=== PATIENT | female | born 1955 | race Caucasian/White ===

== ENCOUNTER 2024-05-31 10:25 | Outpatient (AMB) | payer BC, SELFPAY ==
--- NOTE | 2024-05-31 10:19 | MHC.PC.OV ---
Vital Signs 05/31/24 10:36 Height 5 ft 7.91 in Weight 197 lb 2 oz BMI 30.0 BP 134/70 Blood Pressure Location Rt brachial Position Sitting Respiration 14 Pulse 88 Pulse Source Pulse Oximeter Temp 98 F Temp Source Oral Pulse Oximetry (%) 97 Oxygen Delivery Method Room Air Intake Visit Reasons: Establish care Intake Note: New patient visit Manager Of Manufacturing Required: No Allergies doxycycline Allergy (Unknown, Verified 05/31/24 10:27) Nausea Tobacco use date assessed: 05/31/24 Fall risk assessment: No Falls in past year Last assessed Fall Risk: 05/31/24 Dental Screening Dental Screen Date: 05/31/24 Did you have a dental visit in the last 12 months?: Yes Did you have a dental problem in the last 6 months where you did not have access to dental care?: No Was dental information given to patient?: Patient has dentist HPI HPI Comments History of Present Illness Details This is a 69 year old female with a pmhx of HTN, HLD, tachycardia, multiple thyroid nodules, left breast cancer and osteopenia presenting to transfer from my panel at [facility]. HTN, palpitations, mild AR, mild pulmonary HTN-Seen by Dr. Jason. Taking Losartan and Amlodipine. Patient previously on Carvedilol and reported increased BP and head pressure with it. Reported long history of PND and rhinitis on Lisinopril. She has home readings with her: 04/08/24 126/76 04/21/24 127/73 05/03/24 126/75 05/23/24 131/71 05/30/24 124/77 We have discussed ankle/pedal edema with Amlodipine. She wants to decrease the dose. She stopped drinking decaf coffee. Palpitations and loose stools resolved. 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 Taking multivitamin with 1000 of vitamin D3 for osteopenia. Needs order for bone density sent. Diagnosed with left breast cancer age 45. Recurrence 15 years later. S/p double mastectomy (found precancerouscells in right breast post op). Goes for mammogram next week. Followed by Dr. Baptiste [place]. Colonoscopy at [facility] 05/26/17 was wnl and advised to return in [address] Fuchs for pulm HTN and lung nodule. ROS: Constitutional: No unexplained weight loss, fever, chills, fatigue or night sweats. Respiratory: No shortness of breath, cough or sputum production. Cardiovascular: No chest pain Neurologic: No headache, dizziness, syncope Physical exam: Constitutional: Alert, in no distress. Head: Normocephalic. Neck: Supple, Full range of motion. No lymphadenopathy. Respiratory: Clear to auscultation. Cardiovascular: S1 S2 regular. II/ systolic murmur. Gastrointestinal: Abdomen soft, non-tender, non-distended. Normal bowel sounds. No palpable masses. Extremities: Warm and well perfused. Trace bilateral ankle edema. Psychiatric: Normal mood and affect [facility] Medical History (Updated 05/31/24 @ 13:49 by STACI Ibarra) History of left breast cancer Tachycardia Pure hypercholesterolemia Sigmoid diverticulosis Osteopenia Ophthalmic migraine Multiple thyroid nodules Mild pulmonary hypertension Mild aortic regurgitation Hyperlipidemia History of diverticulosis Hemorrhoids, internal H/O herpes zoster Diarrhea Benign essential hypertension Acute sinusitis Surgical History (Updated 05/31/24 @ 13:49 by STACI Ibarra) Hx of breast surgery H/O bilateral oophorectomy Family History (Updated 05/31/24 @ 13:50 by STACI Ibarra) Mother Breast cancer Sister Breast cancer Social History Housing: House Patient Tobacco Use Status: Never used Tobacco e-Cigarette/Vaping Use: Never Used Second Hand Smoke Exposure: No service: No Current occupational status: retired Cognitive needs: No Hearing needs: No Vision needs: Yes (glasses) Questionnaire AUDIT C Alcohol Use Questionnaire (AUDIT-C) 1. How often do you have a drink containing alcohol?: 4 or more times a week 2. How many drinks containing alcohol do you have on a typical day when you are drinking?: 1 or 2 3. How often do you have six or more drinks on one occasion?: Never Total Score: 4 Physical exam (Primary Care) Vital Signs: Last Vital Signs Temp 98 F 05/31/24 10:36 Pulse 88 05/31/24 10:36 Resp 14 05/31/24 10:36 BP 134/70 05/31/24 10:36 Pulse Ox 97 05/31/24 10:36 Oxygen Delivery Method Room Air 05/31/24 10:36 BMI result Body Mass Index 30.0 Tobacco/Smoking Status: Tobacco use Status Tobacco use date assessed 05/31/24 05/31/24 10:31 Patient Tobacco Use Status Never used Tobacco 05/31/24 10:31 e-Cigarette/Vaping Use Never Used 05/31/24 10:31 Assessment and Plan Assessment & Plan (1) Benign essential hypertension: Code(s): I10 - Essential (primary) hypertension Plan: Controlled per home readings. OK to decrease Amlodipine to 2.5 mg. Continue Losartan 50 mg. If BP is over 130/80 we will increase Losartan. She will send readings in few weeks. (2) Pure hypercholesterolemia: Code(s): E78.00 - Pure hypercholesterolemia, unspecified Plan: Reviewed lifestyle mods. Continue statin. (3) History of left breast cancer: Code(s): Z85.3 - Personal history of malignant neoplasm of breast Plan: Continue routine follow up with Dr. Baptiste's office. Mammogram next week. Plan Follow up in 6 months for physical. Orders: Orders XR DEXA axial skeleton Today N95.1 - Menopausal and female climacteric states Lipid Panel Today E78.00 - Pure hypercholesterolemia, unspecified, I10 - Essential (primary) hypertension, M85.80 - Other specified disorders of bone density and structure, unspecified site, R00.0 - Tachycardia, unspecified Comprehensive Met. Panel Today E78.00 - Pure hypercholesterolemia, unspecified, I10 - Essential (primary) hypertension, M85.80 - Other specified disorders of bone density and structure, unspecified site, R00.0 - Tachycardia, unspecified Complete Blood Count no Diff Today E78.00 - Pure hypercholesterolemia, unspecified, I10 - Essential (primary) hypertension, M85.80 - Other specified disorders of bone density and structure, unspecified site, R00.0 - Tachycardia, unspecified Vitamin D 1,25 dihydroxy Today E78.00 - Pure hypercholesterolemia, unspecified, I10 - Essential (primary) hypertension, M85.80 - Other specified disorders of bone density and structure, unspecified site, R00.0 - Tachycardia, unspecified Medications: New loperamide (Anti-Diarrheal (loperamide)) administer after each loose stool until symptoms controlled; do not exceed 8 mg per 24 hrs 2 mg PO Q6H PRN 30 tabs 1RF loose stool amlodipine 2.5 mg PO DAILY 30 tabs 0RF Coding Level of Care Code Est Pt Level 4 (30433) Complex EM visit Add On G2211 Diagnoses Benign essential hypertension I10 Pure hypercholesterolemia E78.00 History of left breast cancer Z85.3
[2024-05-31 10:36] VITALS: BP 134/70; PULSE 88; RESP 14; TEMP 36.6; O2SAT 97
== END 2024-05-31 11:23 | disposition home or self-care (01) ==
PROVIDERS: PCP Physician Assistant Medical; Visit Provider Physician Assistant Medical
DX: I10 Essential (primary) hypertension (principal); E78.00 Pure hypercholesterolemia, unspecified; Z85.3 Personal history of malignant neoplasm of breast
CPT/HCPCS: 99214

== ENCOUNTER 2024-12-06 07:36 | Outpatient (REF) | payer BC, SELFPAY ==
--- OUTSIDE RECORDS SUMMARY | 2024-12-06 07:38 | XMS_ITS | Data Portability ---
Author Organization [place] - [facility], [facility] Address [id number] [place] [address] Care Team Providers Care Tennis Court Attendant Name Role Phone STANLEY VINES Primary Care Provider KM LAGUNA Primary Care Provider Assessment Encounter Date Assessment Date Assessment LastModified by Organization Details LastModified Time 04/13/2016 04/13/2016 GYNECOLOGIC EXAMINATION - S/P BSO?? . Diet, exercise discussed.?? Advise to use?sunscreen.? Vitamin??D supplementation discussed. 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 PERSONAL HX OF BREAST CANCER - S/P BILATERAL MASTECTOMY WITH RIGHT NIPPLE REMAINED,?? EXPANDERS IN PLACE ejacunski Not available 04/13/2016 22:04:32 05/31/2017 05/31/2017 GYNECOLOGIC EXAMINATION - S/P BSO . Diet, exercise discussed. Advise to use sunscreen. 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 PERSONAL HX OF BREAST CANCER - S/P BILATERAL MASTECTOMY WITH RIGHT NIPPLE ? REMAINED, s/p reconstruction. ? Osteopenia - check BMD ejacunski Not available 06/01/2017 11:53:06 Plan of Treatment Reminders Order Date Submit Date Provider Last Modified By Organization Details Last Modified Time Details Appointments None recorded. Lab urinalysi s, dipstick 2015 016 ejacunski In-Office Order, Internal Use Only DO Not Attach Compendium DO Not Attach Compendium, Do Not Delete/merge, [id number] 6 22:04:31 pap, IG + reflex HPV - NORMAL EXAM [address] [facility], [address] [place], [address] 6 13:46:00 urinalysi s, dipstick 2016 017 ejacunski In-Office Order, Internal Use Only DO Not Attach Compendium DO Not Attach Compendium, Do Not Delete/merge, [id number] 7 11:53:07 pap, IG + HPV - normal exam [address] [facility], [address] [place], [address] 7 14:32:47 pap, IG + reflex HPV - normal exam [address] [facility], [address] [place] [address], [id number] 0 08:20:13 Referral None recorded. Procedures None recorded. Surgeries None recorded. Imaging bone density 2016 017 HERMELINDO Not available 7 08:29:11 Medication Orders None recorded. Patient TargetsNo targets recorded. Patient Instructions Encounter Date Encounter Id Patient Instructions Last Modified By Organization Details Last Modified Time 04/13/2016 [id number] GYNECOLOGIC EXAMINATION - S/P BSO?? . Diet, exercise discussed.?? Advise to use?sunscreen.? Vitamin??D supplementation discussed. 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 PERSONAL HX OF BREAST CANCER - S/P BILATERAL MASTECTOMY WITH RIGHT NIPPLE REMAINED,?? EXPANDERS IN PLACE ejacunski Not available 04/13/2016 22:04:32 GYNECOLOGIC EXAMINATION - S/P BSO?? . Diet, exercise discussed.?? Advise to use?sunscreen.? Vitamin??D supplementation discussed. 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 PERSONAL HX OF BREAST CANCER - S/P BILATERAL MASTECTOMY WITH RIGHT NIPPLE REMAINED,?? EXPANDERS IN PLACE ejacunski Not available 04/13/2016 22:04:32 05/31/2017 [id number] GYNECOLOGIC EXAMINATION - S/P BSO . Diet, exercise discussed. Advise to use sunscreen. 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 PERSONAL HX OF BREAST CANCER - S/P BILATERAL MASTECTOMY WITH RIGHT NIPPLE ? REMAINED, s/p reconstruction. ejacunski Not available 06/01/2017 11:52:30 GYNECOLOGIC EXAMINATION - S/P BSO . Diet, exercise discussed. Advise to use sunscreen. 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 PERSONAL HX OF BREAST CANCER - S/P BILATERAL MASTECTOMY WITH RIGHT NIPPLE ? REMAINED, s/p reconstruction. ejacunski Not available 06/01/2017 11:52:34 06/13/2018 [id number] tips to help you stay healthy ejacunski Not available 06/13/2018 22:09:55 Return to the office for routine exam and as needed. ejacunski Not available 06/13/2018 22:08:06 GYNECOLOGIC EXAMINATION - S/P BSO . Diet, exercise discussed. Advise to use sunscreen. Pap smear guidelines discussed. Pap not done. PERSONAL. HISTORY OF BREAST CANCER - S/P BILATERAL MASTECTOMY WITH RIGHT NIPPLE REMAINED, s/p reconstruction. 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 ejacunski Not available 08/22/2020 12:34:32 Patient presents for a well woman exam. She has been counseled regarding Pap smear screening as per guidelines of every three years for cytology review with high risk HPV testing. We spoke about the recommendation of dietary calcium and Vitamin D supplement. ejacunski Not available 08/19/2020 15:33:15 Reason for Referral None Reported. Results Created Date Observation Date Name Description Value Unit Range Abnormal Flag Note LastModifiedBy Organization Detail LastModifiedTime 05/31/20 17 05/31/2017 urina lysis , dipst ick Protein Negati ve Not Available In-Office Order Internal Use Only DO Not Attach Compendium DO Not Attach Compendium, Do Not Delete/merge, [id number] 05/31/2017 15:03:45 05/31/20 17 05/31/2017 urina lysis , dipst ick Glucose Negati ve Not Available In-Office Order Internal Use Only DO Not Attach Compendium DO Not Attach Compendium, Do Not Delete/merge, [id number] 05/31/2017 15:03:45 04/13/20 16 04/13/2016 urina lysis , dipst ick Protein Negati ve Not Available In-Office Order Internal Use Only DO Not Attach Compendium DO Not Attach Compendium, Do Not Delete/merge, [id number] 04/13/2016 11:19:33 04/13/20 16 04/13/2016 urina lysis , dipst ick Glucose Negati ve Not Available In-Office Order Internal Use Only DO Not Attach Compendium DO Not Attach Compendium, Do Not Delete/merge, [id number] 04/13/2016 11:19:33 04/13/20 16 04/14/2016 pap, IG + refle x HPV report GYNEC OLOGI KATHERIN CYTOL OGY REPOR T THINP REP PAP TEST WITH HPV REFLE X SPECI MEN ADEQU ACY: SATIS FACTO RY FOR EVALU ATION ; ENDOC ERVIC AL/TR ANSFO RMATI ON ZONE COMPO NENT PRESE NT. INTER PRETA TION: NEGAT ESTRELLA FOR INTRA EPITH ELIAL LESIO N OR MALSENDY I[place] . Elect farzana mello Sravani d Out By: SELENA TURK ON, [place]( CP) CLINI KATHERIN INFOR MATIO N: LMP: 2002 Z12.4 Speci men sourc e: CERVI X/END OCERV IX Abnor mal Pap Date: NI Addit ional Clini katherin Info/ Comme nts: 1 Autom ated presc reeni ng of all liqui d based speci mens is perfo rmed by the ThinP rep Imagi ng Systjuaquin mfelix s other [place]. The Pap test is a scree radha test with an inher ent false negat estrella rate. [facility]i [facility] , [address] [place] [address] CLIA [id number] CL-PO [id number]. Not Available [facility] [address] [place], [address] 04/14/2016 13:46:00 05/31/20 17 06/01/2017 pap, IG + HPV report GYNEC OLOGI KATHERIN CYTOL OGY REPOR T A. THINP REP PAP (IMAG ER) WITH HPV SCREE N AND REFLE X TO HPV 16,18 /45: SPECI MEN ADEQU ACY: SATIS FACTO RY FOR EVALU ATION . INTER PRETA TION: NEGAT ESTRELLA FOR INTRA EPITH ELIAL LESIO N OR MALSENDY CAMPBELLCY . 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 The Pap test is a scree radha test with an inher ent false negat estrella rate. [facility]i ng [facility] , [address] [place] [address] CLIA [id number] CL-PO [id number]. Not Available [facility] [address] [place], [place], [facility] 06/01/2017 14:32:47 05/31/20 17 06/01/2017 pap, IG + HPV HPV result Negati ve negati ve APTIM A HPV assay detec ts 14 high risk HPV types (HPV 16,18 ,31,3 3,35, 39,45 , 51,52 ,56,5 8,59, 66,68 ). The assay is FDA appro nitza for testi ng ThinP rep liqui d Pap vials but not FDA appro nitza for detec ting HPV in SureP ath liqui d Pap speci mens. In-ho use valid ation has shown the assay can detec t all HPV types from this sourc e. Not Available [facility] [address] [place] [address], [id number] 06/01/2017 14:32:47 10/06/01 2008/19/2020 pap, IG + refle x HPV report Report Final Gynec ologi katherin Cytol ogy Repor t ----- ----- ----- ----- ----- ----- ----- ----- ----- ----- ----- ----- ThinP rep Pap Test with HPV Refle x SPECI MEN ADEQU ACY: SATIS FACTO RY FOR EVALU ATION ; ENDOC ERVIC AL/TR ANSFO RMATI ON ZONE COMPO NENT PRESE NT. INTER PRETA TION: NEGAT ESTRELLA FOR INTRA EPITH ELIAL HEDY Anderson OR TIESHA [place] . Atrop hy Elect farzana Lassiter d: Carolina Johnson, [place] (ASCP ) ----- ----- ----- ----- ----- ----- ----- ----- ----- ----- ----- ----- CLINI KATHERIN INFOR JOCELYNE N: LMP: NG Speci men Sourc e: Cervi x, Endoc ervix CPT Codes : 73184 ICD Codes : Z12.4 Not Available [facility] [address] [place], [address] 08/24/2020 08:20:13 06/06/20 17 06/12/2012 bone densi ty No observ ation record ed. mkulas Not Available 2016 09:41:50 09/18/20 17 09/15/2017 DEXA, axial skele ton EXAMIN ATION: BONE DENSIT OMETRY CLINIC AL INDICA TION: Encoun ter for screen ing for osteop orosis . COMPAR DEVIN: Previo us BD dated 2011 and baseli ne BD dated 2004. TECHNI QUE: Dual-e nergy x-ray absorp tiomet ry was perfor med of the lumbar spine and left hip. The images are of good techni katherin qualit y. Summar y result s are attach ed. FINDIN GS: AP SPINE L1-L4: Curren t: BMD 1.011 g/cm2, Z-scor e 0.0, T-scor e -1.5, osteop enia, 3.4% increa se from previo us, 3.2% decrea se from baseli ne (<5% change is not signif icant) . Prior: BMD 0.978 g/cm2. Baseli ne: BMD 1.044 g/cm2. LEFT FEMUR, NECK: Curren t: BMD 0.934 g/cm2, Z-scor e 0.7, T-scor e -0.7, normal . Prior: BMD 0.880 g/cm2. Baseli ne: BMD 0.990 g/cm2. LEFT FEMUR, TOTAL: Curren t: BMD 0.934 g/cm2, Z-scor e 0.6, T-scor e -0.6, normal , 1.9% increa se from previo us, 5.7% decrea se from baseli ne (<5% change is not signif icant) . Prior: BMD 0.917 g/cm2. Baseli ne: BMD 0.990 g/cm2. IDENTI FIED RISK FACTOR S: Bilate ral oophor ectomy , menopa use. HISTOR Y OF FRACTU RE: None listed . MEDICA TIONS: None listed . IMPRES KONSTANTIN: 1. DIAGNO SIS: Osteop enia based on the lowest T-scor e value of -1.5 in the lumbar spine applyi ng World Health Organi zation criter ia. 2. 10-YEA R FRACTU RE RISK PREDIC TION, FRAX: Major osteop orotic fractu re (clini katherin spine, forear m, hip or should er) 7.4%. Hip fractu re 0.4%. RECOMM ENDATI ONS: 1. Treatm ent Recomm endati ons: NOF guidel david recomm end consid eratio n for treatm ent in postme nopaus al women and men age 50 and older presen juancho with the follow ing: -A hip or verteb ral (clini katherin or morpho metric ) fractu re. -T-sco re less than or equal to -2.5 at the femora l neck or spine after approp riate evalua tion to exclud e second solomon causes . -Low bone mass at the hip or spine and a 10-yea r fractu re probab ility by FRAX of greate r than or equal to 3% for hip fractu re or greate r than or equal to 20% for major osteop orotic fractu re based on the [place] adapte d WHO algori thm. 2. Other Recomm endati ons: All treatm ent decisi ons requir e clinic al judgme nt and consid eratio n of indivi dual patien t factor s, includ ing patien t prefer ences, comorb iditie s, previo us drug use, risk factor s not captur ed in the FRAX model (e.g. frailt y, falls, vitami n D defici ency, increa sed bone turnov er, interv al signif icant declin e in bone densit y) and possib le under or overes timati on of fractu re risk by FRAX. 3. Future Scan Recomm endati on: People with diagno sed cases of osteop orosis or at high risk for fractu re should have regula r bone minera l densit y tests. For patien ts eligib le for Medica re, routin e testin g is allowe d once every 2 years. The testin g freque ncy can be increa sed to one year for patien ts who have rapidl y progre ssing diseas e, those who are receiv ing or discon tinuin g medica l therap y to restor e bone mass, or have additi onal risk factor s. Thank you for referr ing your patien t to us, Eunice Garcia MD (Elect arabella torres Signed - 2016 08:22) Copy: STANLEY APPLE ON DO RAMIREZ EMI Reilly [facility] [facility] [address] [place] [address] [place] [address] [phone] [email or web address] [facility] [place] [address], [place], [address], 09/19/2017 10:13:05 09/18/20 17 09/15/2017 bone densi ty No observ ation record ed. [email or web address] [facility] [place] [address], [place], [address], 09/19/2017 10:13:05 10/18/20 21 10/15/2021 DEXA, axial skele ton EXAMIN ATION: BONE DENSIT OMETRY CLINIC AL INDICA TION: Osteop enia. COMPAR DEVIN: Previo us BD dated 2016 and baseli ne BD dated 2004. TECHNI QUE: Using a [employer] e DXA system (softw are versio n: 14.10) manufa ctured by [employer] s [employer], dual-e nergy x-ray absorp tiomet ry was perfor med of the lumbar spine and left hip. The images are of good techni katherin qualit y. Summar y result s are attach ed. FINDIN GS: AP SPINE L1-L4: Curren t: BMD 0.992 g/cm2, Z-scor e 0.0, T-scor e -1.6, osteop enia, 1.9% decrea se from previo us, 5.0% decrea se from baseli ne (<5% change is not signif icant) . Prior: BMD 1.011 g/cm2. Baseli ne: BMD 1.044 g/cm2. LEFT FEMUR, NECK: Curren t: BMD 0.900 g/cm2, Z-scor e 0.6, T-scor e -1.0, normal . Prior: BMD 0.934 g/cm2. Baseli ne: BMD 0.990 g/cm2. LEFT FEMUR, TOTAL: Curren t: BMD 0.876 g/cm2, Z-scor e 0.3, T-scor e -1.0, normal , 6.2% decrea se from previo us, 11.5% decrea se from baseli ne (<5% change is not signif icant) . Prior: BMD 0.934 g/cm2. Baseli ne: BMD 0.990 g/cm2. IDENTI FIED RISK FACTOR S: Menopa use, bilate ral oophor ectomy . HISTOR Y OF FRACTU RE: None listed . MEDICA TIONS: Vitami n D. IMPRES KONSTANTIN: 1. DIAGNO SIS: Osteop enia based on the lowest T-scor e value of -1.6 in the lumbar spine applyi ng World Health Organi zation criter ia. 2. 10-YEA R FRACTU RE RISK PREDIC TION, FRAX: Major osteop orotic fractu re (clini katherin spine, forear m, hip or should er) 8.6%. Hip fractu re 0.8%. 3. Treatm ent Recomm endati ons: NOF guidel david recomm end consid eratio n for treatm ent in postme nopaus al women and men age 50 and older presmannie dawkins with the follow ing: -A hip or verteb ral (clini katherin or morpho metric ) fractu re. -T-sco re less than or equal to -2.5 at the femora l neck or spine after approp riate evalua tion to exclud e second solomon causes . -Low bone mass at the hip or spine and a 10-yea r fractu re probab ility by FRAX of greate r than or equal to 3% for hip fractu re or greate r than or equal to 20% for major osteop orotic fractu re based on the [place] adapte d WHO algori thm. 4. Other Recomm endati ons: All treatm ent decisi ons requir e clinic al judgme nt and consid eratio n of indivi dual patien t factor s, includ ing patien t prefer ences, comorb iditie s, previo us drug use, risk factor s not captur ed in the FRAX model (e.g. frailt y, falls, vitami n D defici ency, increa sed bone turnov er, interv al signif icant declin e in bone densit y) and possib le under or overes timati on of fractu re risk by FRAX. Additi onal medica l evalua tion for second solomon cause of low bone minera l densit y may be approp riate. FUTURE SCAN RECOMM ENDATI ON: People with diagno sed cases of osteop orosis or at high risk for fractu re should have regula r bone minera l densit y tests. For patien ts eligib le for Medica re, routin e testin g is allowe d once every 2 years. The testin g freque ncy can be increa sed to one year for patien ts who have rapidl y progre ssing diseas e, those who are receiv ing or discon tinuin g medica l therap y to restor e bone mass, or have additi onal risk factor s. Thank you for referr ing your patien t to us, Stanley olson MD [id number] (Elect arabella torres Signed - 2020 08:40) Copy: FITZ RUSSELL [facility] [address] [place] [address] [phone] jennie [facility] ([facility]) [address], [place], [address], 10/25/2021 11:31:28 Result Notes None recorded. Problems Name Problem SNOMED Code Status Onset Date Resolution Date Notes Provider Name and Address Organization Details Recorded Time Malignant tumor of breast 331728221 Active S/P BILATERAL MASTECTOMY , RIGHT NIPPLE REMAINED - DR.KING FITZ MADERA MD 175 [facility], [address] [place] [address], [phone], [place] [facility] 6 22:06:46 Osteopenia [id number] Active FITZ MADERA MD 175 [facility], [address] [place] [address], [phone], [place] [facility] 6 22:06:46 Notes:HX OF BSO Problem Notes None recorded. Procedures Surgical History Date Name Laterality Status Provider Name and Address Organization Details Recorded Time 05/31/20 17 [id number] completed FITZ MADERA MD 175 [facility], [address] [place] [address], [phone], [facility] 06/01/2017 11:49:45 05/31/20 17 [id number] completed FITZ MADERA MD 175 [facility], [address] [place] [address], [phone], [facility] 06/01/2017 11:50:02 05/31/20 17 [id number] completed FITZ MADERA MD [address], [place], [address], [facility] 06/01/2017 11:48:09 05/31/20 17 [id number] completed FITZ MADERA MD [address], [place], [address], [facility] 06/01/2017 11:50:19 05/31/20 17 Date of Last Pap Smear completed Cecilia Hall [facility] 06/13/2018 15:25:48 05/26/20 17 Date of Last Colonoscopy completed FITZ MADERA MD [address], [place], [address], [facility] 05/31/2017 15:25:31 04/13/20 16 [id number] completed FITZ MADERA MD [address], [place], [address], [facility] 04/13/2016 22:01:26 04/13/20 16 [id number]-RXT completed FITZ MADERA MD [address], [place], [address], [facility] 04/13/2016 22:01:26 04/13/20 16 [id number] completed FITZ MADERA MD [address], [place], [address], [facility] 04/13/2016 22:01:26 04/13/20 16 [id number] completed IFTZ MADERA MD [address], [place], [address], [facility] 04/13/2016 22:01:26 04/13/20 16 [id number] completed FITZ MADERA MD [address], [place], [address], [facility] 04/13/2016 22:01:26 12/07/19 16 Mastectomy Bilateral completed Cecilia Hall [place] - [facility] 04/13/2016 11:23:31 12/03/19 16 Breast Surgery completed FITZ MADERA MD [address], [place], [address], [place] [facility] 12/29/2015 20:53:17 09/28/20 15 Breast Biopsy completed FITZ MADERA MD [address], [place], [address], [place] - [facility] 12/04/2015 03:47:41 09/25/20 15 Date of Last Mammogram completed Cecilia Hall CT - [facility] 04/13/2016 11:23:31 06/05/20 07 Laparoscopy completed FITZ MADERA MD [address], [place], [address], [place] - [facility] 04/13/2016 11:44:47 11/23/19 06 Myomectomy completed FITZ MADERA MD [address], [place], [address], [place] - [facility] 04/13/2016 11:44:47 Imaging Results Imaging Date Name Status LastModified by Organiz ation Details LastModified Time 06/12/2012 bone density completed mkulas Information not available 06/06/2017 09:41:50 09/15/2017 DEXA, axial skeleton completed [address], [place], [address], 09/19/2017 10:13:05 09/15/2017 bone density completed [address], [place], [address], 09/19/2017 10:13:05 10/15/2021 DEXA, axial skeleton [facility] [address], [place], [address], 10/25/2021 11:31:28 Procedure Notes None recorded. Medical Equipment None Reported. Allergies No known drug allergies Medications Name Sig Start Date Stop Date Status Note LastModified by Organization Details LastModified Time amoxicillin 500 mg capsule 05/31 completed Not Available Not Available Not Available lisinopril 20 mg tablet 08/19 completed Not Available Not Available Not Available cephalexin 500 mg capsule 05/31 completed Not Available Not Available Not Available simvastatin 20 mg tablet active Not Available Not Available No t Available clotrimazole-be tamethasone 1 %-0.05 % topical cream 08/19 completed Not Available Not Available Not Available metronidazole 0.75 % topical cream 08/19 completed Not Available Not Available Not Available lisinopril 30 mg tablet active Not Available Not Available No t Available chlorhexidine gluconate 0.12 % mouthwash 05/31 completed Not Available Not Available Not Available simvastatin 05/31 completed Not Available Not Available Not Available Vitamin D active Not Available Not Dalila ilable Not Available lisinopril 05/31 completed Not Available Not Available Not Available Suprep Bowel Prep Kit 17.5 gram-3.13 gram-1.6 gram oral solution 05/31 completed Not Available Not Available Not Available Fluzone High-Dose 6032-6027 (PF) 180 mcg/0.5 mL intramuscular syringe active Not Available Not Available Not Available Fluzone Quad (PF) 60 mcg (15 mcg x 4)/0.5 mL IM syringe active Not Available Not Available Not Available Vitals Date Recorded Body mass index (BMI) Body height Body weight Systolic blood pressure Diastolic blood pressure Provider Name and Address Organization Details Last Updated DateTime 04/13/2016 27.9 kg/m2 175.26 cm 11489.95 793 g 120 mm[Hg] 70 mm[Hg] Cecilia Hall [facility] 6 11:19:33 Date Recorded Body height Provider Name an d Address Organization Details Last Updated DateTime 05/31/2017 175.26 cm Cecilia Hall [facility] 05/31/2017 15:01:21 Date Recorded Body mass index (BMI) Body weight Provider Name and Address Organization Details Last Updated DateTime 05/31/2017 27.5 kg/m2 74892.18 g Cecilia Hall [facility] 05/31/2017 15:01:25 Date Recorded Body height Provider Name an d Address Organization Details Last Updated DateTime 06/13/2018 175.26 cm Cecilia Hall [facility] 06/13/2018 15:41:10 Date Recorded Body mass index (BMI) Body weight Provider Name and Address Organization Details Last Updated DateTime 06/13/2018 27 kg/m2 02009.4 g Cecilia Hall [facility] 06/13/2018 15:41:13 Date Recorded Body weight Provider Name an d Address Organization Details Last Updated DateTime 08/19/2020 07726.96 g [facility] 08/19/2020 15:08:29 Date Recorded Body mass index (BMI) Body height Provider Name and Address Organization Details Last Updated DateTime 08/19/2020 27.9 kg/m2 175.26 cm Katie Gaurav [facility] 08/19/2020 15:08:32 Date Recorded Systolic blood pressure Diastolic blood pressure Provider Name and Address Organization Details Last Updated DateTime 05/31/2017 122 mm[Hg] 86 mm[Hg] Cecilia Hall [facility] 05/31/2017 15:07:18 Date Recorded Systolic blood pressure Diastolic blood pressure Provider Name and Address Organization Details Last Updated DateTime 06/13/2018 140 mm[Hg] 90 mm[Hg] Cecilia Hall [facility] 06/13/2018 15:41:05 Date Recorded Systolic blood pressure Diastolic blood pressure Provider Name and Address Organization Details Last Updated DateTime 08/19/2020 142 mm[Hg] 82 mm[Hg] Katie Nolasco [facility] 08/19/2020 15:09:28 Social History Question Answer Notes LastModified by Organizat ion Details LastModified Time Tobacco Smoking Status Never Smoker Cecilia Hallmeggan manzanares [facility] 04/13/2016 11:23:31 What Is Your Level Of Alcohol Consumption? Occasional Information not available 06/13/2018 What Was The Date Of Your Most Recent Tobacco Screening? 08/19/2020 Information not available 08/19/2020 How Much Tobacco Do You Smoke? No Information not available 08/19/2020 Sex: Unknown Functional Status Question Answer Note LastModified by Organizat ion Details LastModified Time What is your exercise level? Occasional Information not available 04/13/2016 Mental Status None recorded. Family History Relationship Description Onset Age of this Age Resolved Age Notes LastModified by Organization Details LastModified Time Father Not available 11:23:31 Mother Malignant tumor of breast Not available 2015 11:23:31 Mother Hypertensive disorder Not available 2015 11:23:31 Mother Hypercholest erolemia Not available 2015 11:23:31 Mother Not available 15:41:28 Sister Malignant tumor of breast both sister s Not available 05/31/2017 15:02:32 Medical History Condition Response Breast Cancer Y Benign breast disease Y Gynecological History Statement/Question Response Abnormal Pap N Current Control Method Menopause Date of Last Mammogram 09/25/2015 Date of Last Colonoscopy 05/26/2017 Breast Biopsy Y Date of last DEXA 09/15/2017 IPV Screen Done 08/19/2020 Date of Last Pap Smear 05/31/2017 Last HPV Result Negative Obstetrics History GPAL:G 2 P 0 0 0 2 Type Value Living 2 Total 2 Past Encounters Encounter ID Performer Location Encounter Start Date Encounter Closed Date Diagnosis/Indication Diagnosis SNOMED-CT Code Diagnosis ICD10 Code Diagnosis Note [id number] FITZ MADERA MD [facility] [address] [place] [address] 04/13/2016 10:58:03 04/13/2016 11:53:17 Gynecologic examination 31565611 Z01.419 Screening for malignant neoplasm of cervix 887018878 Z12.4 [id number] FITZ MADERA MD [facility] [address] [place] [address] 05/31/2017 14:39:09 05/31/2017 15:41:53 Gynecologic examination 64136168 Z01.411 Screening for malignant neoplasm of cervix 721018101 Z12.4 Z11.51 Screening for osteoporosis 382218269 Z13.161 [id number] FITZ MADERA MD [facility] [address] [place] [address] 06/13/2018 15:09:21 06/13/2018 16:02:34 Gynecologic examination 07542556 Z01.411 GYNECOLOGI C EXAMINATIO N - S/P BSO . Diet, exercise discussed. Advise to use sunscreen. PERSONAL. Pap smear guidelines discussed. Pap not done.HISTO RY OF BREAST CANCER - S/P BILATERAL MASTECTOMY WITH RIGHT NIPPLE REMAINED, s/p reconstruc tion. [id number] FITZ MADERA MD [facility] [address] [place] [address] 08/19/2020 14:51:05 08/19/2020 15:38:39 Gynecologic examination 42440996 Z01.419 GYNECOLOGI C EXAMINATIO N - S/P BSO prophylact ic . Diet, exercise discussed. Advise to use sunscreen. Pap smear guidelines discussed. Pap not done.PERSO NAL HISTORY OF BREAST CANCER - S/P BILATERAL MASTECTOMY WITH RIGHT NIPPLE REMAINED, s/p reconstruc tion. Screening for malignant neoplasm of cervix 332366948 Z12.4 Depression screening 171 951540 Z13.31 Health Concerns Section Related Observation LastModified by Organization Detai ls LastModified Time None Recorded Concern Status LastModified by Organization Details LastModified Time None Recorded Advance Directives Directive None Recorded Payers Encounter Date Sequence Insurance Name Policy Number Policy Wright Covered Member ID Wright Member ID Guarantor Name 04/13/2016 1 [employer] - CHOICE (POS II) [id number] Antoine Martin [id number] Maria G Martin 05/31/2017 1 [employer] - CHOICE (POS II) [id number] Antoine Martin [id number] Maria G Martin 06/13/2018 1 [place]MEDICARE [place]PL[place] PPO) [id number] Maria G Martin [id number] Maria G Martin 08/19/2020 1 [place] PPO) [id number] Maria G Martin [id number] Maria G Martin Notes Date Note Type Note Provider Name and Address Organization Details Recorded Time 04/13/2016 text/html [facility] Annual GYNReported bypatient.History: s/p bilateral mastectomy 11/2015 Preventive measures:Encourage self breast examination; Encourage regular exercise; Up to date on colonoscopy screening; DEXA needs to schedule FITZ MADERA MD [address] [address], [facility] 04/13/2016 22:07:12 05/31/2017 text/html [facility] Annual GYNReported bypatient.History: no change in interval history Preventive measures:Encourage self breast examination; Encourage regular exercise FITZ MADERA MD [address] [address], [facility] 06/01/2017 11:53:40 06/13/2018 text/html [facility] Annual GYNReported bypatient.History: no change in interval history Preventive measures:Encourage self breast examination; Encourage regular exercise; Up to date on colonoscopy screening; DEXA up to date FITZ MADERA MD [address], [address] [place] [address], [facility] 06/13/2018 22:09:58 08/19/2020 text/html [facility] Annual GYNReported bypatient.History: no change in interval history Preventive measures:Encourage self breast examination; Encourage regular exercise; Up to date on colonoscopy screening; DEXA up to date 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 FITZ MADERA MD [address], [address] [place] [address], [facility] 08/22/2020 12:36:13 OBGyn Episode Ob Episode Information Episode Created Date Number of Fetuses Patient Bloodtype Patient rh Status Prepregnancy Weight lbs Domestic Partner Domestic Partner Phone Father Name Belt Machine Operator Status 04/13/20 16 1 CLOSED Fetus Data First Name Last Name Admitted to NICU Weight (g) Sex Living Outcome Pediatric Complications Fetus ID Race Codes Race Delivery Type F [id number] Vaginal Delivery Bandar Calculation Initial Bandar Date Initial Exam Date Initial Exam Provider Initial Ultrasound Date Last Menstrual Period Date Ultra Sound Weeks Gestation 0 Eighteen To Twenty Week Bandar Update Ultra Sound Date Fundal Height At Umbil Quickening Date Ultra Sound Latest Weeks Gestation Final Bandar Confirmed By Final Bandar Confirmed Date Final Bandar Date Ultra Sound Latest Days Gestation 0 0 Menstrual History Last Menstrual Date Menses Monthly On Bcp Conception Prior Menses Frequency Hcg Plus Date Menarche Onset Age Delivery Information Delivery Date Delivery Type Labor Anesthesia Weeks Gestation Incision Type Labor Labor Length Hrs Delivered By Post Complications Tubal Sterilization Discharge Date Comments 2 Discharge Information Feeding Method Contraceptive Method Maternal HG B and HCT Levels Ob Episode Information Episode Created Date Number of Fetuses Patient Bloodtype Patient rh Status Prepregnancy Weight lbs Domestic Partner Domestic Partner Phone Father Name Belt Machine Operator Status 04/13/20 16 1 CLOSED Fetus Data First Name Last Name Admitted to NICU Weight (g) Sex Living Outcome Pediatric Complications Fetus ID Race Codes Race Delivery Type F [id number] Vaginal Delivery Bandar Calculation Initial Bandar Date Initial Exam Date Initial Exam Provider Initial Ultrasound Date Last Menstrual Period Date Ultra Sound Weeks Gestation 0 Eighteen To Twenty Week Bandar Update Ultra Sound Date Fundal Height At Umbil Quickening Date Ultra Sound Latest Weeks Gestation Final Bandar Confirmed By Final Bandar Confirmed Date Final Bandar Date Ultra Sound Latest Days Gestation 0 0 Menstrual History Last Menstrual Date Menses Monthly On Bcp Conception Prior Menses Frequency Hcg Plus Date Menarche Onset Age Delivery Information Delivery Date Delivery Type Labor Anesthesia Weeks Gestation Incision Type Labor Labor Length Hrs Delivered By Post Complications Tubal Sterilization Discharge Date Comments 0 Discharge Information Feeding Method Contraceptive Method Maternal HG B and HCT Levels
[2024-12-06 12:06] LABS: Hematocrit 44.1 % (37.0-47.0); Hemoglobin 14.5 g/dl (12.0-16.0); Mean Corpuscular HGB Conc 32.9 g/dl (31.0-35.0); Mean Corpuscular Hemoglobin 29.1 pg (27.0-33.0); Mean Corpuscular Volume 88.4 fL (80.0-98.0); Mean Platelet Volume 9.5 fL (9.4-12.3); Platelet Count 330 X10*3/uL (160-400); Red Blood Count 4.99 X10*6/uL (4.20-5.50); Red Cell Distribution Width 12.4 % (11.0-16.0); White Blood Count 5.8 X10*3/uL (4.8-10.8)
[2024-12-06 15:37] LABS: Alanine Aminotransferase 25 U/L (0-31); Albumin Level 4.3 g/dL (3.5-5.0); Alkaline Phosphatase 79 U/L (39-117); Anion Gap 12 (12-20); Aspartate Amino Transferase 27 U/L (5-31); Bilirubin Total 0.6 mg/dL (0.0-1.0); Blood Urea Nitrogen 17 mg/dL (9-16); Calcium 9.4 mg/dL (8.4-10.2); Carbon Dioxide 25 mmol/L (22-29); Chloride 106 mmol/L (96-108); Cholesterol 175 mg/dL (<200); Estimated Glomerular Filt Rate > 60; Glucose Random 81 mg/dL (60-115); HDL Cholesterol 68 mg/dL (>40); LDL Cholesterol Calculated 89 mg/dL (<100); Potassium 4.1 mmol/L (3.3-5.1); Sodium 139 mmol/L (135-145); Triglycerides 91 mg/dL (<150)
[2024-12-12 11:19] LABS: VITAMIN D (1,25 OH) D3 48 pg/mL; Vit D (1,25-Dihydroxy) Total 48 pg/mL (18-72); Vitamin D (1,25 OH) D2 <8 pg/mL
== END 2024-12-06 07:37 | disposition home or self-care (01) ==
LOC: HO.WFDLDS 07:36
PROVIDERS: Visit Provider Physician Assistant Medical
DX: R00.0 Tachycardia, unspecified (principal); I10 Essential (primary) hypertension; E78.00 Pure hypercholesterolemia, unspecified; M85.80 Other specified disorders of bone density and structure, unspecified site
CPT/HCPCS: 36415; 80053; 80061; 82652; 85027

== ENCOUNTER 2024-12-09 11:58 | Outpatient (AMB) | payer BC, SELFPAY ==
--- NOTE | 2024-12-09 12:07 | A.OFFPC_ITS ---
Vital Signs 12/09/24 12:11 12/09/24 12:17 Height 5 ft 7.91 in Weight 196 lb 8 oz BMI 30.0 BP 150/80 H 149/77 H Blood Pressure Location Rt brachial Rt brachial Position Sitting Sitting Respiration 14 Pulse 72 Pulse Source Pulse Oximeter Temp 98.1 F Temp Source Oral Pulse Oximetry (%) 98 Oxygen Delivery Method Room Air Intake Visit Reasons: CPE Intake Note: CPE Allergies doxycycline Allergy (Unknown, Verified 12/09/24 12:10) Nausea Tobacco use date assessed: 05/31/24 Dental Screening Dental Screen Date: 05/31/24 HPI HPI Comments History of Present Illness Details This is a 69 year old female with a pmhx of HTN, HLD, tachycardia, multiple thyroid nodules, left breast cancer status post bilateral mastectomy and osteopenia presenting for her physical exam. HTN, palpitations, mild AR, mild pulmonary HTN-Seen by Dr. Jason. Taking Losartan and Amlodipine. Patient previously on Carvedilol and reported increased BP and head pressure with it. Reported long history of PND and rhinitis on Lisinopril. Her blood pressure is elevated at the office, but her home readings have been around 130/70 and sometimes in the 120s systolic. She feels well, and she wants to stay on her current medications. She has brought in her machine twice before to make sure it is calibrated correctly. She had a CT scan of the chest without contrast on 07/10/2023 at [facility] which demonstrated a 0.4 cm solid nodule in the left lower lobe. She had minimal bronchiectasis in the middle right lobe and lingula and linear atelectasis or scarring in the lingula. She also had biapical scarring. There was also borderline evidence of pulmonary hypertension. She saw pulmonology, Dr. Christian. She also saw Cardiology. Pulmonology recommended follow up CT scan at 12 months which she did not have completed. We discussed this today, and she is willing to have the CT scan done at [facility]. We will fax the order to [facility]. Denies cough, chest pain, shortness of breath. [facility] records show she received the Tdap vaccine 11/22/2019 and the Prevnar 13 vaccine 10/22/2020 and Pneumovax 23 vaccine 12/11/2019. She received the seasonal influenza vaccine this year. She has a history of multiple thyroid nodules-I will review her records from [facility] to see if this requires follow up imaging or did not meet criteria for this. 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 She has an annual on 03/13/[address] Starks. Taking multivitamin with 1000 of vitamin D3 for osteopenia. Bone density was done 08/2024. Diagnosed with left breast cancer age 45. Recurrence 15 years later. S/p double mastectomy (precancerous cells were found in right breast post op). Followed by Dr. Baptiste in [place]. We reviewed all of her available blood work. Her vitamin-D level is still pending, but her other labs are normal. [facility]oscopy at [place] [facility] 05/26/17 was wnl and advised to return in 10 years. She is going to [facility] and to [place]. ROS: Constitutional: No unexplained weight loss, fever, chills, fatigue or night sweats. Eyes: No vision changes, blurry vision, double vision, eye pain, eye redness, eye discharge. ENT: No hearing loss, sneezing, congestion, runny nose or sore throat. Respiratory: No shortness of breath, cough or sputum production. Cardiovascular: No chest pain, chest pressure or chest discomfort. No palpitations or pedal edema. Gastrointestinal: No anorexia, nausea, vomiting or diarrhea. No abdominal pain or blood in stool. Genitourinary: No dysuria, hematuria, urinary frequency. Neurologic: No headache, dizziness, syncope, unilateral weakness, ataxia, numbness or tingling in the extremities. Musculoskeletal: No muscle pain, back pain, joint pain or swelling. Hematologic/Lymphatics: No bleeding or bruising. No painful lymph nodes. Skin: No rash or itching. She saw dermatology last week, and they removed a lesion on her left upper back. She is waiting for the pathology report. Endocrine: No cold or heat intolerance. No polyuria or polydipsia. Psychiatric: No depression or anxiety. No SI/HI. Physical exam: Constitutional: Alert, in no distress. Head: Normocephalic. Eyes: Pupils are equal, round and reactive to light. Extraocular muscles intact. Ear, Nose and Throat: Canals clear. TMs normal. Normal nasal mucosa. No nasal discharge. No oral lesions. Neck: Supple, Full range of motion. No lymphadenopathy. No palpable thyroid masses. Respiratory: Clear to auscultation. Cardiovascular: S1 S2 regular. No murmurs. No carotid bruits. Gastrointestinal: Abdomen soft, non-tender, non-distended. Normal bowel sounds. No palpable masses. Neurologic: No focal neurological deficits. Symmetric patellar reflexes. Moves all extremities spontaneously. Sensation intact bilaterally. Skin: No rashes. Small Band-Aid on left upper back from biopsy site. Musculoskeletal: No gross deformities. Normal range of motion. Extremities: Warm and well perfused. No clubbing, cyanosis or edema. 3+ peripheral pulses bilaterally. Psychiatric: Normal mood and affect [facility] Medical History (Updated 12/09/24 @ 13:34 by STACI Ibarra) Routine physical examination Lung nodule Presence of bilateral breast implant History of left breast cancer Tachycardia Pure hypercholesterolemia Sigmoid diverticulosis Osteopenia Ophthalmic migraine Multiple thyroid nodules Mild pulmonary hypertension Mild aortic regurgitation Hyperlipidemia History of diverticulosis Hemorrhoids, internal H/O herpes zoster Diarrhea Benign essential hypertension Acute sinusitis Surgical History Hx of breast surgery H/O bilateral oophorectomy Family History Mother Breast cancer Sister Breast cancer Social History Housing: House Patient Tobacco Use Status: Never used Tobacco e-Cigarette/Vaping Use: Never Used Second Hand Smoke Exposure: No service: No Current occupational status: retired Cognitive needs: No Hearing needs: No Vision needs: Yes (glasses) Questionnaire PHQ-9 Over the last 2 weeks, how often have you been bothered by any of the following problems? 1. Little interest or pleasure in doing things: not at all 2. Feeling down, depressed, or hopeless: not at all 3. Trouble falling or staying asleep, or sleeping too much: not at all 4. Feeling tired or having little energy: not at all 5. Poor appetite or overeating: not at all 6. Feeling bad about yourself - or that you are a failure or have let yourself or your family down: not at all 7. Trouble concentrating on things, such as reading the newspaper or watching television: not at all 8. Moving or speaking so slowly that other people could have noticed. Or the opposite - being so fidgety or restless that you have been moving around a lot more than usual: not at all 9. Thoughts that you would be better off or of hurting yourself in some way: not at all Total score: 0 Depression Screening Interpretation: Negative Depression Screening Done: Yes 81272 - PHQ-9 Billing: Yes Source: Developed by Drs. Moris Carter, Melina Mitchell, Venkat Knapp and colleagues, with an educational maggy from [email or web address]. Thrive Questionnaire Date Thrive assessed: 12/09/24 I am a: Patient What is your living situation today?: I have a steady place to live Within the past 12 months, did the food you bought not last and you didn't have the money to get more?: Often true Within the past 12 months, did you worry whether your food would run out before you got money to buy more?: Often true Do you have trouble paying for medicines?: No Do you have trouble getting transportation to medical appointments?: No Do you have trouble paying your heating and electricity bill?: No Do you have trouble taking care of your child, family member or friend?: No Do you have trouble with day-to-day activities such as bathing, preparing meals, shopping, managing finances, etc.?: No Are you currently unemployed and looking for a job?: No Are you interested in more education?: No Please select the resources that you would like help with: None Currently or been in a relationship where the following occur: No concerns reported THRIVE Score: 2 AUDIT C Alcohol Use Questionnaire (AUDIT-C) 1. How often do you have a drink containing alcohol?: Never Total Score: 0 BJ-7 AMB Questionnaire BJ-7 Date BJ - 7 assessed: 12/09/24 Feeling nervous, anxious, or on edge: 0 = Not at all Not being able to stop or control worryin = Not at all Worrying too much about different things: 0 = Not at all Trouble relaxin = Not at all Being so restless that it is hard to sit still: 0 = Not at all Becoming easily annoyed or irritable: 0 = Not at all Feeling afraid as if something awful might happen: 0 = Not at all Total BJ-7 score (0-4 normal; 5-9 mild; 10-14 moderate; 15-21 severe): 0 Source: Developed by Drs. Moris Carter, Melina Mitchell, Venkat Knapp and colleagues, with an educational maggy from [email or web address]. Physical exam (Primary Care) Vital Signs: Last Vital Signs Temp 98.1 F 12/09/24 12:11 Pulse 72 12/09/24 12:11 Resp 14 12/09/24 12:11 BP 149/77 H 12/09/24 12:17 Pulse Ox 98 12/09/24 12:11 Oxygen Delivery Method Room Air 12/09/24 12:11 BMI result Body Mass Index 30.0 Tobacco/Smoking Status: Tobacco use Status Tobacco use date assessed 05/31/24 12/09/24 12:16 Patient Tobacco Use Status Never used Tobacco 12/09/24 12:16 e-Cigarette/Vaping Use Never Used 12/09/24 12:16 PHQ-9: PHQ-9 Score PHQ-9: Total score 0 12/09/24 12:16 Depression Screening Interpretation: Negative Thrive Assessment: Date of Thrive Assessment Date Thrive assessed 12/09/24 12/09/24 12:16 Currently or been in a relationship where the following occur: No concerns reported Coding Level of Care Code Complex EM visit Add On G2211 Diagnoses Routine physical examination Z00.00 Additional Codes PHQ-9 - 56937 - PHQ-9 Billing: Yes ([id number]) Assessment & Plan Assessment & Plan (1) Routine physical examination: Code(s): Z00.00 - Encounter for general adult medical examination without abnormal findings Category: Medical Plan Patient is seen today for a routine physical. As part of this visit we reviewed the following issues, which are considered and essential part of preventative health in this age group: - Breast Cancer screening - Annual Supervisor Home Restoration Service exam - Screening for colon cancer - Blood pressure screening - Cholesterol screening - Osteoporosis prevention including calcium/vitamin D intake, weight bearing exercise & smoking cessation - Nutritional and exercise counseling - Counseling of injury prevention including fire prevention, smoke alarms and seat belt usage - Screening for depression - Prevention of and/or testing for infectious diseases - Education about skin cancer - Recommendations about immunizations - Recommendation of an eye exam - Screening for substance abuse Orders: Orders CT chest wo IV con Today R91.1 - Solitary pulmonary nodule Medications: New losartan 50 mg PO DAILY 90 tabs 3RF Refilled amlodipine 2.5 mg PO DAILY 90 tabs 3RF
[2024-12-09 12:11] VITALS: BP 150/80; PULSE 72; RESP 14; TEMP 36.7; O2SAT 98
[2024-12-09 12:17] VITALS: BP 149/77
--- OUTSIDE RECORDS SUMMARY | 2024-12-09 16:57 | XMS_ITS | Encounter Summary ---
Author Organization [facility] Address [address] [place] [address] Care Team Providers Care Community Outreach Director Name Role Phone Provider, Maren GALAN Primary Care Provider Un available Stanley Calle MD Primary Care Provider [phone] Rosina Rudd MD Unavailable [phone] Melissa French MD Primary Care Provider [phone] Pcp, No Primary Care Provider UnavailSola Sauer Primary Care Provider [phone] Encounter Details Date Type Department Care Team (Late st Contact Info) Description 12/07/2015 Scanned Document [address] [place] [id number] Provider, Generic Social History Tobacco Use Types Packs/Day Years Used Date Smoking Tobacco: Never Assessed Sex and Gender Information Value Date Recorded Sex Assigned at Not on file Gender Identity Not on file Sexual Orientation Not on file documented as of this encounter Plan of Treatment Upcoming Encounters Date Type Department Care Team (Late st Contact Info) Description 06/09/2025 11:00 AM EDT Office Visit [facility] [address] [place] [address] Fiona Faith APRN [address] [place] [address] documented as of this encounter Procedures Procedure Name Priority Date/Time Associated Diagnosis Comments NUCLEAR MEDICINE EXTERNAL RESULT 12/07/2015 PATHOLOGY BREAST 12/07/2015 documented in this encounter Results * PATHOLOGY BREAST (12/07/2015) Narrative 12/07/2015 Ordered by an unspecified provider. Generic Provider HHC HX PATH PROCEDUR ES * NUCLEAR MEDICINE EXTERNAL RESULT (12/07/2015) Anatomical Region Laterality Modality Nuclear Medicine Narrative 12/09/2016 8:33 AM EST Ordered by an unspecified provider. Generic Provider IMG NM ORDERABLES documented in this encounter Visit Diagnoses Not on filedocumented in this encounter Care Teams Community Outreach Director Relationship Specialty Start Date End Date ProviderMaren MD PCP - General Internal Medicine 02/24/16 02/27/16 Stanley Calle MD [address] [place] [id number] PCP - General 02/28/16 03/25/19 Melissa French MD [address] [place] [id number] PCP - General 03/26/19 05/23/24 Pcp, No PCP - General General Medicine 05/24/24 06/03/24 Sola Le PA [address] [place] [id number] PCP - General General Medicine 06/04/24 Rosina Rudd MD [address] [place] [id number] Hematology Oncology 04/12/16 11/20/16 documented as of this encounter
--- OUTSIDE RECORDS SUMMARY | 2024-12-09 16:57 | XMS_ITS ---
Author Name [facility] Organization Unknown History of Medication Use Medication Directions Dispensed Refills Start Date End Date Stat us Multiple Vitamins-Minerals (ONE A DAY WOMEN 50 PLUS PO) Take by mouth. 01/08/2024 active triamcinolone (NASACORT AQ) 55 MCG/ACT Aerosol nasal spray into each nostril daily. active lisinopril (PRINIVIL,ZeSTRIL) 20 MG tablet Take 2 tablets (40 mg total) by mouth daily. 06/04/2024 aborted multivitamin Tab tablet Take 1 tablet by mouth daily. active Problems Problem Status Onset Date Problem Type Date of Resolution Source BRCA gene mutation negative active [facility] active [facility] Family history of breast cancer active [facility] Malignant neoplasm of nipple of right breast in female, unspecified estrogen receptor status (HCC) active EncounterDiagnosisAct [facility] H/O breast reconstruction active 2016-03-02 ProblemAct [facility] S/P mastectomy, bilateral active [facility]
--- OUTSIDE RECORDS SUMMARY | 2024-12-09 16:57 | XMS_ITS ---
Author Organization [employer]. 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 Care Team Providers Care Business Instructor Name Role Phone Unavailable Unavailable Unavailable Gillian GALAN, Melissa Primary Care Provider Melissa French MD Primary Care Provider Sola Santa Primary Care Provider Encounters Encounter Date Encounter Type Encounter Diagnosis Care Provider Facility Start: 06-04-2024 [id number] End: 06-04-2024 14:00-0400 Office/outpatient established mod mdm 30 min Malignant neoplasm of female breast Gogo Faith APRN Work Phone: [facility] Comment on above: Malignant neoplasm o f nipple of right breast in female, unspecified estrogen receptor status (HCC) (Primary Dx); S/P mastectomy, bilateral; Family history of breast cancer; H/O breast reconstruction; BRCA gene mutation negative Patient encounter procedure [facility] Ambulatory Medical Equipment Procedure Code Equipment Code Equipment Origin al Text Equipment Identifier Dates Natrelle Left Br east Silicone Implant [id number] Start: 09-15-2016 Medications Current Medications Medication Drug Class(es) Dates Sig (Normalized) Sig (Original) losartan potassium 50 MG Oral Tablet (1 source) Angiotensin 2 Receptor Janene Take 1 tablet (50 mg total) by mouth daily. Once a day Multiple Vitamins-Minerals (ONE A DAY WOMEN 50 PLUS PO) (1 source) Start: 01-08-2024 Take by mouth. multivitamin Tab tablet (1 source) take 1 tablet by mouth once daily Take 1 tablet by mouth daily. Plan of Treatment Date Care Activity Detail Author Start: 06-13-2024 Administration of influenza vaccine Influenza Vaccine [facility] Start: 07-14-2023 COVID-19 Vaccine ( season) COVID-19 Vaccine (4 - 2023-24 season) [facility] Start: 2013 RSV Vaccine 60 years and older and Patients (1 - 1-dose 60+ series) RSV Vaccine 60 years and older and Patients (1 - 1-dose 60+ series) [facility] Start: 1998 Screening for malignant neoplasm of colon Colonoscopy [facility] Start: 1959 Pneumococcal Vaccines 65+ (1 of 2 - PCV) Pneumococcal Vaccines 65+ (1 of 2 - PCV) [facility] Procedures Date Procedure Procedure Detail Performing Clinician History of bilateral mastectomy S/P mastectomy, bilateral Gogo Marcell IVORY POLISHER Work Phone: History of breast reconstruction H/O breast reconstruction Gogo Marcell [employer] POLISHER Work Phone: Vital Signs Date Time Vital Sign Value Performing Clinician Faci litdelmar 06-04-2024 13:35-0400 Body height 172.7 cm Gogo Marcell [employer] Work Phone: [facility] 06-04-2024 13:35-0400 Body mass index (BMI) [Ratio] 29.65 kg/m2 Gogo Marcell [employer] POL[employer]ER Work Phone: [facility] 06-04-2024 13:35-0400 Body weight 88.45 kg Gogo Marcell [employer]ORY POL[employer]ER Work Phone: [facility] 06-04-2024 13:35-0400 BP (Blood pressure) 146/89mm[Hg] Gogo Marcell IVORY POL[employer]ER Work Phone: [facility] 06-04-2024 13:35-0400 Heart rate 84 /min Gogo Marcell [employer] POL[employer]ER Work Phone: [facility] 06-04-2024 13:35-0400 SaO2% (BldA) [Mass fraction] 99 % Gogo Marcell IVORY POL[employer]ER Work Phone: [facility] History of Present illness Narrative 06-04-2024 Gogo Faith APRN - 06/04/2024 1:30 PM EDT Note Date & Type Note Facility 06-04-2024 History of Presen t illness Narrative Images from the original note were not included. Breast Health Progress Note Outpatient Name: Maria G Martin Age: 69 y.o. Sex: female Healthcare Team: STACI Ibarra Breast Surgeon: Maggy Baptiste MD Subjective Chief Complaint: Chief Complaint Patient presents with Follow-up 1 year Maria G Martin presents today for follow up of breast health surveillance. Her breast history is significant for a left breast cancer history ?2 (2015 and 1999). She is s/p bilateral mastectomies with silicone implant reconstructions. History of Present Illness: -- Just returned from [employer] -- No general health changes or concerns in the interim -- No concerns wrt breast cancer hx Social Hx: -- Exercise: no regular regimen, but active lifestyle -- ETOH weekly intake: 7 glasses wine/week -- Tobacco use: none Oncology History Breast cancer ([facility]) 1999 Initial Diagnosis BREAST CANCER HISTORY DIAGNOSIS: left breast cancer Hx Stage IA Left breast Cancer, 1999, s/p left partial mastectomy and sentinel lymph node biopsy, s/p radiation to the left breast, s/p tamoxifen ?5 years, no chemotherapy PROCEDURE AND DATE: Left mastectomy failed sentinel lymph node biopsy and right nipple sparing mastectomy December 07, 2015 PATHOLOGY: Breast DCIS, 9 mm, grade 2, margins negative, 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 HENT: Negative for sore throat. Respiratory: Negative for chest tightness, cough, shortness of breath and wheezing. Cardiovascular: Negative for chest pain. Gastrointestinal: Negative for blood in stool, constipation, diarrhea and nausea. Endocrine: Negative for hot flashes. Genitourinary: Positive for nocturia. Negative for hematuria. Musculoskeletal: Negative for arthralgias, back pain, myalgias and neck pain. Skin: Negative for rash. Neurological: Negative for dizziness and headaches. Hematological: Does not bruise/bleed easily. Psychiatric/Behavioral: Negative for sleep disturbance. Objective Reviewed 04/21/[address] Baptiste Reviewed 10/25/[address] Caba Past History Past Medical History: Diagnosis Date Breast cancer ([facility]) Left Breast Ca, Stage I, 1.6cm, N0M0, ER/CO+, BCT/SLNbx, RT, [place] Breast cancer ([facility]) 11/28 Left Breast DCIS, ER/CO+, Right Breast ADH/Low grade DCIS, Bilat Mast Breast mass Hyperlipidemia Hypertension PONV (postoperative nausea and vomiting) Past Surgical History: Procedure Laterality Date BREAST SURGERY 10/2000 lft breast lumpectomy BREAST SURGERY 11/28 Bilat Simple Mast COLONOSCOPY EXCHANGE BREAST IMPLANT BILATERAL Bilateral 09/15/2016 Procedure: REVISION AND IMPLANT EXCHANGE ; Surgeon: Montez Caba MD; Location: Main OR; Service: HYSTERECTOMY 2006 Partial: Uterus still in place MASTECTOMY Bilateral 12/07/2015 OOPHORECTOMY 2006 tubes and ovaries CO REVISION OF RECONSTRUCTED BREAST Bilateral 09/15/2016 Procedure: BILATERAL BREAST RECONSTRUCTION ; Surgeon: Montez Caba MD; Location: Main OR; Service: Plastics Family History Problem Relation Age of Onset Breast cancer Mother 68 Breast cancer Sister 47 BRCA Neg , SANCHEZ + Breast cancer Sister 52 BRCA Neg Allergies No Known Allergies Medications Current Outpatient Medications Medication Sig Dispense Refill amLODIPine (NORVASC) 2.5 MG tablet Take 1 tablet (2.5 mg total) by mouth daily. atorvastatin (LIPITOR) 10 MG tablet Take 1 tablet (10 mg total) by mouth daily. losartan (COZAAR) 50 MG tablet Take 1 tablet (50 mg total) by mouth daily. Once a day Multiple Vitamins-Minerals (ONE A DAY WOMEN 50 PLUS PO) Take by mouth. multivitamin Tab tablet Take 1 tablet by mouth daily. triamcinolone (NASACORT AQ) 55 MCG/ACT Aerosol nasal spray into each nostril daily. Physical Exam: Vitals: 06/04/24 1335 BP: (!) 146/89 Pulse: 84 SpO2: 99% Weight: 88.5 kg (195 lb) Height: 1.727 m (5' 8 ) Physical Exam Vitals reviewed. Constitutional: Appearance: Normal appearance. HENT: Head: Normocephalic and atraumatic. Eyes: General: No scleral icterus. Cardiovascular: Rate and Rhythm: Normal rate and regular rhythm. Pulses: Normal pulses. Heart sounds: Normal heart sounds. Pulmonary: Effort: Pulmonary effort is normal. Breath sounds: Normal breath sounds. Chest: Breasts: Breasts are asymmetrical. Right: Absent. Left: Absent. Musculoskeletal: General: Normal range of motion. Cervical back: Normal range of motion and neck supple. Lymphadenopathy: Cervical: No cervical adenopathy. Right cervical: No superficial, deep or posterior cervical adenopathy. Left cervical: No superficial, deep or posterior cervical adenopathy. Upper Body: Right upper body: No supraclavicular, axillary or pectoral adenopathy. Left upper body: No supraclavicular, axillary or pectoral adenopathy. Skin: General: Skin is warm and dry. Neurological: General: No focal deficit present. Mental Status: She is alert and oriented to person, place, and time. Psychiatric: Mood and Affect: Mood normal. Behavior: Behavior normal. Thought Content: Thought content normal. Judgment: Judgment normal. Imaging Studies: No results found. Assessment Left breast cancer x 2 () -> clinically RADHA S/p BL mastectomies with silicone implants Family Hx breast cancer (mom, 2 sisters) BRCA neg Plan 1. Follow up with me in 1 year for CBE 2. Advised to continue to have good self chest awareness, and to call should she have any changes or concerns in the interim. 3. Implant surveillance as needed-> pt will NOT do any MRI for surveillance of implant integrity (cannot with her right shoulder) so if any imaging needed down the road, would order US 4. Discussed lifestyle modifications for breast cancer risk reduction, specifically: Establish a regular exercise regimen, recommending at least 150 mins/week of moderate to vigorous exercise. Exercise should include cardio, core strengthening/toning, and weight-bearing exercises. Abstain from alcohol consumption altogether, or limit alcohol to no more than 3 alcoholic drinks/week. Establish, and then maintain a healthy weight, with a target BMI <25. Eat a heart-healthy, largely plant-based diet, low in saturated fats and red or processed meats; high in a colorful multitude of fresh vegetables, fruits, soluble fiber, and lean proteins. Avoid tobacco products in any form No orders of the defined types were placed in this encounter. documented in this encounter [facility] Clinical Note 06-04-2024 Note Date & Type Note Facility 06-04-2024 Sales Project Coordinator Authentication Interface Message Text Breast Health Progress Note Outpatient Name: Maria G Martin Age: 69 y.o. Sex: female Healthcare Team: STACI Ibarra Breast Surgeon: Maggy Baptiste MD Subjective Chief Complaint: Chief Complaint Patient presents with Follow-up 1 year Maria G Martin presents today for follow up of breast health surveillance. Her breast history is significant for a left breast cancer history ?2 (2015 and 1999). She is s/p bilateral mastectomies with silicone implant reconstructions. History of Present Illness: -- Just returned from [employer] -- No general health changes or concerns in the interim -- No concerns wrt breast cancer hx Social Hx: -- Exercise: no regular regimen, but active lifestyle -- ETOH weekly intake: 7 glasses wine/week -- Tobacco use: none Oncology History Breast cancer ([facility]) 1999 Initial Diagnosis BREAST CANCER HISTORY DIAGNOSIS: left breast cancer Hx Stage IA Left breast Cancer, 1999, s/p left partial mastectomy and sentinel lymph node biopsy, s/p radiation to the left breast, s/p tamoxifen ?5 years, no chemotherapy PROCEDURE AND DATE: Left mastectomy failed sentinel lymph node biopsy and right nipple sparing mastectomy December 07, 2015 PATHOLOGY: Breast DCIS, 9 mm, grade 2, margins negative, 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 HENT: Negative for sore throat. Respiratory: Negative for chest tightness, cough, shortness of breath and wheezing. Cardiovascular: Negative for chest pain. Gastrointestinal: Negative for blood in stool, constipation, diarrhea and nausea. Endocrine: Negative for hot flashes. Genitourinary: Positive for nocturia. Negative for hematuria. Musculoskeletal: Negative for arthralgias, back pain, myalgias and neck pain. Skin: Negative for rash. Neurological: Negative for dizziness and headaches. Hematological: Does not bruise/bleed easily. Psychiatric/Behavioral: Negative for sleep disturbance. Objective Reviewed 04/21/[address] Baptiste Reviewed 10/25/[address] Caba Past History Past Medical History: Diagnosis Date Breast cancer ([facility]) Left Breast Ca, Stage I, 1.6cm, N0M0, ER/CO+, BCT/SLNbx, RT, [place] Breast cancer ([facility]) 11/28 Left Breast DCIS, ER/CO+, Right Breast ADH/Low grade DCIS, Bilat Mast Breast mass Hyperlipidemia Hypertension PONV (postoperative nausea and vomiting) Past Surgical History: Procedure Laterality Date BREAST SURGERY 10/2000 lft breast lumpectomy BREAST SURGERY 11/28 Bilat Simple Mast COLONOSCOPY EXCHANGE BREAST IMPLANT BILATERAL Bilateral 09/15/2016 Procedure: REVISION AND IMPLANT EXCHANGE ; Surgeon: Montez Caba MD; Location: Main OR; Service: HYSTERECTOMY 2006 Partial: Uterus still in place MASTECTOMY Bilateral 12/07/2015 OOPHORECTOMY 2006 tubes and ovaries CO REVISION OF RECONSTRUCTED BREAST Bilateral 09/15/2016 Procedure: BILATERAL BREAST RECONSTRUCTION ; Surgeon: Montez Caba MD; Location: Main OR; Service: Plastics Family History Problem Relation Age of Onset Breast cancer Mother 68 Breast cancer Sister 47 BRCA Neg , SANCHEZ + Breast cancer Sister 52 BRCA Neg Allergies No Known Allergies Medications Current Outpatient Medications Medication Sig Dispense Refill amLODIPine (NORVASC) 2.5 MG tablet Take 1 tablet (2.5 mg total) by mouth daily. atorvastatin (LIPITOR) 10 MG tablet Take 1 tablet (10 mg total) by mouth daily. losartan (COZAAR) 50 MG tablet Take 1 tablet (50 mg total) by mouth daily. Once a day Multiple Vitamins-Minerals (ONE A DAY WOMEN 50 PLUS PO) Take by mouth. multivitamin Tab tablet Take 1 tablet by mouth daily. triamcinolone (NASACORT AQ) 55 MCG/ACT Aerosol nasal spray into each nostril daily. Physical Exam: Vitals: 06/04/24 1335 BP: (!) 146/89 Pulse: 84 SpO2: 99% Weight: 88.5 kg (195 lb) Height: 1.727 m (5' 8 ) Physical Exam Vitals reviewed. Constitutional: Appearance: Normal appearance. HENT: Head: Normocephalic and atraumatic. Eyes: General: No scleral icterus. Cardiovascular: Rate and Rhythm: Normal rate and regular rhythm. Pulses: Normal pulses. Heart sounds: Normal heart sounds. Pulmonary: Effort: Pulmonary effort is normal. Breath sounds: Normal breath sounds. Chest: Breasts: Breasts are asymmetrical. Right: Absent. Left: Absent. Musculoskeletal: General: Normal range of motion. Cervical back: Normal range of motion and neck supple. Lymphadenopathy: Cervical: No cervical adenopathy. Right cervical: No superficial, deep or posterior cervical adenopathy. Left cervical: No superficial, deep or posterior cervical adenopathy. Upper Body: Right upper body: No supraclavicular, axillary or pectoral adenopathy. Left upper body: No supraclavicular, axillary or pectoral adenopathy. Skin: General: Skin is warm and dry. Neurological: General: No focal deficit present. Mental Status: She is alert and oriented to person, place, and time. Psychiatric: Mood and Affect: Mood normal. Behavior: Behavior normal. Thought Content: Thought content normal. Judgment: Judgment normal. Imaging Studies: No results found. Assessment Left breast cancer x 2 () -> clinically RADHA S/p BL mastectomies with silicone implants Family Hx breast cancer (mom, 2 sisters) BRCA neg Plan 1. Follow up with me in 1 year for CBE 2. Advised to continue to have good self chest awareness, and to call should she have any changes or concerns in the interim. 3. Implant surveillance as needed-> pt will NOT do any MRI for surveillance of implant integrity (cannot with her right shoulder) so if any imaging needed down the road, would order US 4. Discussed lifestyle modifications for breast cancer risk reduction, specifically: Establish a regular exercise regimen, recommending at least 150 mins/week of moderate to vigorous exercise. Exercise should include cardio, core strengthening/toning, and weight-bearing exercises. Abstain from alcohol consumption altogether, or limit alcohol to no more than 3 alcoholic drinks/week. Establish, and then maintain a healthy weight, with a target BMI Eat a heart-healthy, largely plant-based diet, low in saturated fats and red or processed meats; high in a colorful multitude of fresh vegetables, fruits, soluble fiber, and lean proteins. Avoid tobacco products in any form No orders of the defined types were placed in this encounter. [facility] Ambulatory Clinical Note 06-04-2024 Note Date & Type Note Facility 06-04-2024 Sales Project Coordinator Authentication Interface Message Text Breast Health Progress Note Outpatient Name: Maria G Martin Age: 69 y.o. Sex: female Healthcare Team: STACI Ibarra Breast Surgeon: Maggy Baptiste MD Subjective Chief Complaint: Chief Complaint Patient presents with Follow-up 1 year Maria G Martin presents today for follow up of breast health surveillance. Her breast history is significant for a left breast cancer history ?2 (2015 and 1999). She is s/p bilateral mastectomies with silicone implant reconstructions. History of Present Illness: -- Just returned from [employer] -- No general health changes or concerns in the interim -- No concerns wrt breast cancer hx Social Hx: -- Exercise: no regular regimen, but active lifestyle -- ETOH weekly intake: 7 glasses wine/week -- Tobacco use: none Oncology History Breast cancer ([facility]) 1999 Initial Diagnosis BREAST CANCER HISTORY DIAGNOSIS: left breast cancer Hx Stage IA Left breast Cancer, 1999, s/p left partial mastectomy and sentinel lymph node biopsy, s/p radiation to the left breast, s/p tamoxifen ?5 years, no chemotherapy PROCEDURE AND DATE: Left mastectomy failed sentinel lymph node biopsy and right nipple sparing mastectomy December 07, 2015 PATHOLOGY: Breast DCIS, 9 mm, grade 2, margins negative, 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 HENT: Negative for sore throat. Respiratory: Negative for chest tightness, cough, shortness of breath and wheezing. Cardiovascular: Negative for chest pain. Gastrointestinal: Negative for blood in stool, constipation, diarrhea and nausea. Endocrine: Negative for hot flashes. Genitourinary: Positive for nocturia. Negative for hematuria. Musculoskeletal: Negative for arthralgias, back pain, myalgias and neck pain. Skin: Negative for rash. Neurological: Negative for dizziness and headaches. Hematological: Does not bruise/bleed easily. Psychiatric/Behavioral: Negative for sleep disturbance. Objective Reviewed 04/21/[address] Baptiste Reviewed 10/25/[address] Caab Past History Past Medical History: Diagnosis Date Breast cancer ([facility]) Left Breast Ca, Stage I, 1.6cm, N0M0, ER/CO+, BCT/SLNbx, RT, [place] Breast cancer ([facility]) 11/28 Left Breast DCIS, ER/CO+, Right Breast ADH/Low grade DCIS, Bilat Mast Breast mass Hyperlipidemia Hypertension PONV (postoperative nausea and vomiting) Past Surgical History: Procedure Laterality Date BREAST SURGERY 10/2000 lft breast lumpectomy BREAST SURGERY 11/28 Bilat Simple Mast COLONOSCOPY EXCHANGE BREAST IMPLANT BILATERAL Bilateral 09/15/2016 Procedure: REVISION AND IMPLANT EXCHANGE ; Surgeon: Montez Caba MD; Location: Main OR; Service: HYSTERECTOMY 2006 Partial: Uterus still in place MASTECTOMY Bilateral 12/07/2015 OOPHORECTOMY 2006 tubes and ovaries CO REVISION OF RECONSTRUCTED BREAST Bilateral 09/15/2016 Procedure: BILATERAL BREAST RECONSTRUCTION ; Surgeon: Montez Caba MD; Location: Main OR; Service: Plastics Family History Problem Relation Age of Onset Breast cancer Mother 68 Breast cancer Sister 47 BRCA Neg , SANCHEZ + Breast cancer Sister 52 BRCA Neg Allergies No Known Allergies Medications Current Outpatient Medications Medication Sig Dispense Refill amLODIPine (NORVASC) 2.5 MG tablet Take 1 tablet (2.5 mg total) by mouth daily. atorvastatin (LIPITOR) 10 MG tablet Take 1 tablet (10 mg total) by mouth daily. losartan (COZAAR) 50 MG tablet Take 1 tablet (50 mg total) by mouth daily. Once a day Multiple Vitamins-Minerals (ONE A DAY WOMEN 50 PLUS PO) Take by mouth. multivitamin Tab tablet Take 1 tablet by mouth daily. triamcinolone (NASACORT AQ) 55 MCG/ACT Aerosol nasal spray into each nostril daily. Physical Exam: Vitals: 06/04/24 1335 BP: (!) 146/89 Pulse: 84 SpO2: 99% Weight: 88.5 kg (195 lb) Height: 1.727 m (5' 8 ) Physical Exam Vitals reviewed. Constitutional: Appearance: Normal appearance. HENT: Head: Normocephalic and atraumatic. Eyes: General: No scleral icterus. Cardiovascular: Rate and Rhythm: Normal rate and regular rhythm. Pulses: Normal pulses. Heart sounds: Normal heart sounds. Pulmonary: Effort: Pulmonary effort is normal. Breath sounds: Normal breath sounds. Chest: Breasts: Breasts are asymmetrical. Right: Absent. Left: Absent. Musculoskeletal: General: Normal range of motion. Cervical back: Normal range of motion and neck supple. Lymphadenopathy: Cervical: No cervical adenopathy. Right cervical: No superficial, deep or posterior cervical adenopathy. Left cervical: No superficial, deep or posterior cervical adenopathy. Upper Body: Right upper body: No supraclavicular, axillary or pectoral adenopathy. Left upper body: No supraclavicular, axillary or pectoral adenopathy. Skin: General: Skin is warm and dry. Neurological: General: No focal deficit present. Mental Status: She is alert and oriented to person, place, and time. Psychiatric: Mood and Affect: Mood normal. Behavior: Behavior normal. Thought Content: Thought content normal. Judgment: Judgment normal. Imaging Studies: No results found. Assessment Left breast cancer x 2 () -> clinically RADHA S/p BL mastectomies with silicone implants Family Hx breast cancer (mom, 2 sisters) BRCA neg Plan 1. Follow up with me in 1 year for CBE 2. Advised to continue to have good self chest awareness, and to call should she have any changes or concerns in the interim. 3. Implant surveillance as needed-> pt will NOT do any MRI for surveillance of implant integrity (cannot with her right shoulder) so if any imaging needed down the road, would order US 4. Discussed lifestyle modifications for breast cancer risk reduction, specifically: Establish a regular exercise regimen, recommending at least 150 mins/week of moderate to vigorous exercise. Exercise should include cardio, core strengthening/toning, and weight-bearing exercises. Abstain from alcohol consumption altogether, or limit alcohol to no more than 3 alcoholic drinks/week. Establish, and then maintain a healthy weight, with a target BMI Eat a heart-healthy, largely plant-based diet, low in saturated fats and red or processed meats; high in a colorful multitude of fresh vegetables, fruits, soluble fiber, and lean proteins. Avoid tobacco products in any form No orders of the defined types were placed in this encounter. [facility] Ambulatory Evaluation note Note Date & Type Note Facility Evaluation note Diagnosis Malignant neoplasm of nipple of right breast in female, unspecified estrogen receptor status (HCC)- Primary S/P mastectomy, bilateral Family history of breast cancer Family history of malignant neoplasm of breast H/O breast reconstruction BRCA gene mutation negative documented in this encounter [facility] Reason for visit Narrative Note Date & Type Note Facility Reason for visit Narrative Reason Comments Follow-up 1 year [facility] Advance Directives Latest Code Status on File Code Status Date Activated Date Inactivated Comments Full Code 09/15/2016 9:34 AM 09/15/2016 4:06 PM Latest Code Status on File Code Status Date Activated Date Inactivated Comments Full Code 09/15/2016 9:34 AM 09/15/2016 4:06 PM Date Activated Date Inactivated Comments 09/15/2016 9:34 AM 09/15/2016 4:06 PM Additional Source Comments Care Teams (unrecognized sec tion and content) Business Instructor Relationship Specialty Start Date End Date Melissa French MD PCP - General 03/26/19 Business Instructor Relationship Specialty Start Date End Date Melissa French MD PCP - General 03/26/19 Business Instructor Relationship Specialty Start Date End Date Sola Le PA [address] [place] [address] PCP - General General Medicine 06/04/24 FOR RECORDS PERTAINING TO PATIENTS WHO ARE OR HAVE BEEN ENROLLED IN A CHEMICAL DEPENDENCY/SUBSTANCEABUSE PROGRAM, SOME INFORMATION MAY BE OMITTED. This clinical summary was aggregated from multiple sources. Caution should be exercised in using it in the provision of clinical care. This summary normalizes information from multiple sources, and as a consequence, information in this document may materially change the coding, format and clinical context of patient data. In addition, data may be omitted in some cases. CLINICAL DECISIONS SHOULD BE BASED ON THE PRIMARY CLINICAL RECORDS. [employer] provides no warranty or guarantee of the accuracy or completeness of information in this document.The following information is based on time limited clinical information
--- OUTSIDE RECORDS SUMMARY | 2024-12-09 16:57 | XMS_ITS | Clinical Summary ---
Author Organization [facility] Address [address] [place] [address] Care Team Providers Care Master Rigger Name Role Phone Sola Le Primary Care Provider [phone] Allergies No known active allergies Medications Medication Sig Dispensed Refills Start Date End Date Status triamcinolone (NASACORT AQ) 55 MCG/ACT Aerosol nasal spray into each nostril daily. Active amLODIPine (NORVASC) 2.5 MG tablet Take 1 tablet (2.5 mg total) by mouth daily. 03/10/2023 Active atorvastatin (LIPITOR) 10 MG tablet Take 1 tablet (10 mg total) by mouth daily. 04/05/2023 Active multivitamin Tab tablet Take 1 tablet by mouth daily. Active losartan (COZAAR) 50 MG tablet Take 1 tablet (50 mg total) by mouth daily. Once a day Active Multiple Vitamins-Minerals (ONE A DAY WOMEN 50 PLUS PO) Take by mouth. 01/08/2024 Active Active Problems Problem Noted Date Diagnosed Date H/O breast reconstruction 03/02/2016 Overview (03/02/2016): BREAST RECONSTRUCTION DONE 12/07/2015 Breast cancer Overview (11/18/2016): Left Breast Ca, Stage I, 1.6cm, N0M0, ER/NE+, BCT/SLNbx, RT, [place] Breast cancer Overview (11/18/2016): 11/28 Left Breast DCIS, ER/NE+, Right Breast ADH/Low grade DCIS, Bilat Mast Family History Medical History Relation Name Comments Breast cancer Mother Breast cancer Sister 1 BRCA Neg , SANCHEZ + Breast cancer Sister 2 BRCA Neg Relation Name Status Comments Mother Sister 1 Sister 2 Social History Tobacco Use Types Packs/Day Years Used Date Smoking Tobacco: Never Smokeless Tobacco: Never Tobacco Cessation:Counseling Given: Not Answered Alcohol Use Standard Drinks/Week Comments Yes 7 (1 standard drink = 0.6 oz pur e alcohol) 1 glass of wine daily Sex and Gender Information Value Date Recorded Sex Assigned at Not on file Gender Identity Not on file Sexual Orientation Not on file Last Filed Vital Signs Vital Sign Reading Time Taken Comments Blood Pressure 146/89 06/04/2024 1:35 PM EDT Pulse 84 06/04/2024 1:35 PM EDT Temperature 36.1 ??C (96.9 ??F) 09/15/2016 12:00 PM E DT Respiratory Rate 14 06/13/2017 2:40 PM EDT Oxygen Saturation 99% 06/04/2024 1:35 PM EDT Inhaled Oxygen Concentration - - Weight 88.5 kg (195 lb) 06/04/2024 1:35 PM EDT Height 172.7 cm (5' 8 ) 06/04/2024 1:35 PM EDT Body Mass Index 29.65 06/04/2024 1:35 PM EDT Plan of Treatment Upcoming Encounters Date Type Department Care Team (Late st Contact Info) Description 06/09/2025 11:00 AM EDT Office Visit [facility] Breast [facility] & Surgery [address] [place] [phone] Fiona Faith, TOM [address] [place] [address] Health Maintenance Due Date Last Done Comments Hepatitis C Virus Screening 1955 DTaP/Tdap/Td Vaccines (1 - Tdap) 1972 Pneumococcal Vaccines 50+ (1 of 2 - PCV) 1972 Zoster (Shingles) Vaccine (1 of 2) 1972 Colonoscopy 1998 Influenza Vaccine 06/13/2024 08/22/2022, , 08/11/2020, Additional history exists COVID-19 Vaccine (4 - 2024-25 season) 2024 09/03/2021, 01/29/2021, 01/08/2021 DXA Bone Density (Females,Ages 65 and older) 08/27/2026 08/27/2024, 10/18/2021 RSV Vaccine 60 years and older and Patients (1 - 1-dose 75+ series) 2028 Hepatitis B Vaccines Aged Out No long er eligible based on patient's age to complete this topic Medical Devices Implanted Type Area Comprehensive Advisor Device Identifier Shelf Expiration Date Model / Serial / Lot Marko Left Breast Silicone Implant Implanted:Qty: 1 on 09/15/2016 by Montez Caba MD at [facility] Left: Breast [employer] 08/13/2018-600 / [id number] / Marko Right Breast Silicone Implant Implanted:Qty: 1 on 09/15/2016 by Montez Caba MD at [facility] Right: Breast [employer] 05/30/2021-600 / [id number] / Procedures Procedure Name Priority Date/Time Associated Diagnosis Comments BD BONE DENSITY STUDY - AXIAL Routine 08/27/2024 10:26 AM EDT from Last 3 Months or Most Recently Relevant to Health Maintenance Results * BD BONE DENSITY STUDY - AXIAL (08/27/2024 10:26 AM EDT) Anatomical Region Laterality Modality Other 08/27/2024 10:0 0 AM EDT 08/27/2024 10:00 AM EDT Narrative 09/02/2024 12:38 PM EDT EXAMINATION: BONE DENSITOMETRY CLINICAL INDICATION: Menopausal and female climacteric states. COMPARISON: Previous BD dated 10/15/2021 and baseline BD dated 04/01/2005. TECHNIQUE: Using a [employer] DXA system (software version: 14.10) manufactured by [employer], dual-energy x-ray absorptiometry was performed of the lumbar spine and left hip. The images are of good technical quality. Summary results are attached. FINDINGS: AP SPINE L1-L3 (excluding L4): The data of L1-L4 has been changed to exclude the L4 vertebral body, because at this level may cause overestimation of lumbar spine density. Current: BMD 1.041 g/cm2, Z-score 0.5, T-score -1.1, osteopenia, 11.0% increase from previous, 0.1% decrease from baseline (<5% change is not significant). Prior: BMD 0.938 g/cm2. Baseline: BMD 1.042 g/cm2. LEFT FEMUR, NECK: Current: BMD 0.854 g/cm2, Z-score 0.4, T-score -1.3, osteopenia. Prior: BMD 0.900 g/cm2. Baseline: BMD 0.990 g/cm2. LEFT FEMUR, TOTAL: Current: BMD 0.874 g/cm2, Z-score 0.5, T-score -1.1, osteopenia, 0.2% decrease from previous, 11.7% decrease from baseline (<5% change is not significant). Prior: BMD 0.876 g/cm2. Baseline: BMD 0.990 g/cm2. IDENTIFIED RISK FACTORS: Bilateral oophorectomy, hysterectomy, menopause. HISTORY OF FRACTURE: None listed. MEDICATIONS: Calcium supplements or multivitamin, vitamin D. IMPRESSION: 1. DIAGNOSIS: Osteopenia based on the lowest T-score value of -1.3 in the femoral neck applying World Health Organization criteria. ?? 2. 10-YEAR FRACTURE RISK PREDICTION, FRAX: Major osteoporotic fracture (clinical spine, forearm, hip or shoulder) 9.6%. Hip fracture 1.3%. 3. Treatment Recommendations: NOF guidelines recommend consideration for treatment in postmenopausal women and men age 50 and older presenting with the following: -A hip or vertebral (clinical or morphometric) fracture. -T-score less than or equal to -2.5 at the femoral neck or spine after appropriate evaluation to exclude secondary causes. -Low bone mass at the hip or spine and a 10-year fracture probability by FRAX of greater than or equal to 3% for hip fracture or greater than or equal to 20% for major osteoporotic fracture based on the [place] adapted WHO algorithm. 4. Other Recommendations: All treatment decisions require clinical judgment and consideration of individual patient factors, including patient preferences, comorbidities, previous drug use, risk factors not captured in the FRAX model (e.g. frailty, falls, vitamin D deficiency, increased bone turnover, interval significant decline in bone density) and possible under or overestimation of fracture risk by FRAX. Additional medical evaluation for secondary cause of low bone mineral density may be appropriate. FUTURE SCAN RECOMMENDATION: People with diagnosed cases of osteoporosis or at high risk for fracture should have regular bone mineral density tests. For patients eligible for Medicare, routine testing is allowed once every 2 years. The testing frequency can be increased to one year for patients who have rapidly progressing disease, those who are receiving or discontinuing medical therapy to restore bone mass, or have additional risk factors. Electronically signed by: ??Eunice Garcia MD ??09/02/2024 12:38 PM EDT RP Thank you for referring your patient to us, Eunice Anderson. MD Jose [phone] (Electronically Signed - 09/02/2024 12:38) Procedure Note Eunice Garcia MD - 09/02/2024 EXAMINATION: BONE DENSITOMETRY CLINICAL INDICATION: Menopausal and female climacteric states. COMPARISON: Previous BD dated 10/15/2021 and baseline BD dated 04/01/2005. TECHNIQUE: Using a [employer] Advance DXA system (software version:14.10) manufactured by [employer], dual-energy x-rayabsorptiometry was performed of the lumbar spine and left hip. The imagesare of good technical quality. Summary results are attached. FINDINGS: AP SPINE L1-L3 (excluding L4): The data of L1-L4 has been changed toexclude the L4 vertebral body, because at this level may causeoverestimation of lumbar spine density. Current: BMD 1.041 g/cm2, Z-score 0.5, T-score -1.1, osteopenia, 11.0%increase from previous, 0.1% decrease from baseline (<5% change is notsignificant). Prior: BMD 0.938 g/cm2. Baseline: BMD 1.042 g/cm2. LEFT FEMUR, NECK: Current: BMD 0.854 g/cm2, Z-score 0.4, T-score -1.3, osteopenia. Prior: BMD 0.900 g/cm2. Baseline: BMD 0.990 g/cm2. LEFT FEMUR, TOTAL: Current: BMD 0.874 g/cm2, Z-score 0.5, T-score -1.1, osteopenia, 0.2%decrease from previous, 11.7% decrease from baseline (<5% change is notsignificant). Prior: BMD 0.876 g/cm2. Baseline: BMD 0.990 g/cm2. IDENTIFIED RISK FACTORS: Bilateral oophorectomy, hysterectomy, menopause. HISTORY OF FRACTURE: None listed. MEDICATIONS: Calcium supplements or multivitamin, vitamin D. IMPRESSION: 1. DIAGNOSIS: Osteopenia based on the lowest T-score value of -1.3 in thefemoral neck applying World Health Organization criteria. 2. 10-YEAR FRACTURE RISK PREDICTION, FRAX: Major osteoporotic fracture(clinical spine, forearm, hip or shoulder) 9.6%. Hip fracture 1.3%. 3. Treatment Recommendations: NOF guidelines recommend consideration fortreatment in postmenopausal women and men age 50 and older presenting withthe following: -A hip or vertebral (clinical or morphometric) fracture. -T-score less than or equal to -2.5 at the femoral neck or spine afterappropriate evaluation to exclude secondary causes. -Low bone mass at the hip or spine and a 10-year fracture probability byFRAX of greater than or equal to 3% for hip fracture or greater than orequal to 20% for major osteoporotic fracture based on the [place] adapted WHOalgorithm. 4. Other Recommendations: All treatment decisions require clinicaljudgment and consideration of individual patient factors, includingpatient preferences, comorbidities, previous drug use, risk factors notcaptured in the FRAX model (e.g. frailty, falls, vitamin D deficiency, increased bone turnover, interval significantdecline in bone density) and possible under or overestimation of fracturerisk by FRAX. Additional medical evaluation for secondary cause of lowbone mineral density may be appropriate. FUTURE SCAN RECOMMENDATION: People with diagnosed cases of osteoporosis or at high risk for fractureshould have regular bone mineral density tests. For patients eligible forMedicare, routine testing is allowed once every 2 years. The testingfrequency can be increased to one year for patients who have rapidly progressing disease, those who arereceiving or discontinuing medical therapy to restore bone mass, or haveadditional risk factors. Electronically signed by: Eunice Garcia MD 09/02/2024 12:38 PM EDT RPWorkstation: [id number] Thank you for referring your patient to us, Eunice Garcia MD [id number] (Electronically Signed - 09/02/2024 12:38) Sola SMALL IMG LEGACY PROCEDURE S from Last 3 Months or Most Recently Relevant to Health Maintenance Advance Directives * Full Code (Latest Code Status on File) Date Activated Date Inactivated Comments 09/15/2016 9:34 AM 09/15/2016 4:06 PM Care Teams Master Rigger Relationship Specialty Start Date End Date Sola Le PA [address] [place] [address] [id number] PCP - General General Medicine 06/04/24
--- OUTSIDE RECORDS SUMMARY | 2024-12-09 16:57 | XMS_ITS | Encounter Summary ---
Author Organization [facility] Address [address] [place] [address] Care Team Providers Care Bi Lead Name Role Phone Melissa French MD Primary Care Provider [phone] Pcp, No Primary Care Provider Sola Espinal Primary Care Provider [phone] Encounter Details Date Type Department Care Team (Late st Contact Info) Description 05/08/2023 Scanned Document [facility] [place] Breast [facility] Surgery [address] [phone] Fiona Faith APRN [address] [place] [address] Social History Tobacco Use Types Packs/Day Years Used Date Smoking Tobacco: Never Smokeless Tobacco: Never Alcohol Use Standard Drinks/Week Comments Yes 7 (1 standard drink = 0.6 oz pur e alcohol) 1 glass of wine daily Sex and Gender Information Value Date Recorded Sex Assigned at Not on file Gender Identity Not on file Sexual Orientation Not on file COVID-19 Exposure Response Date Recorded In the last 10 days, have yo u been in contact with someone who was confirmed or suspected to have Coronavirus/COVID-19? No / Unsure 05/08/2023 10:40 AM EDT documented as of this encounter Plan of Treatment Upcoming Encounters Date Type Department Care Team (Late st Contact Info) Description 06/09/2025 11:00 AM EDT Office Visit [facility] [place] [facility] Breast [facility] Surgery [address] [place] [address] Fiona Faith APRN [address] [place] [address] documented as of this encounter Visit Diagnoses Not on filedocumented in this encounter Care Teams Bi Lead Relationship Specialty Start Date End Date Melissa French MD PCP - General 03/26/19 05/23/24 Pcp, No PCP - General General Medicine 05/24/24 06/03/24 Sola Le PA [address] [place] [id number] PCP - General General Medicine 06/04/24 documented as of this encounter
--- OUTSIDE RECORDS SUMMARY | 2024-12-09 16:57 | XMS_ITS | Encounter Summary ---
Author Organization [facility] Address [address] [place] [address] Care Team Providers Care Equities Analyst Name Role Phone Provider, Maren GALAN Primary Care Provider Un available Stanley Calle MD Primary Care Provider [phone] Rosina Rudd MD Unavailable [phone] Melissa French MD Primary Care Provider [phone] Pcp, No Primary Care Provider UnavailSola Sauer Primary Care Provider [phone] Encounter Details Date Type Department Care Team (Late st Contact Info) Description 09/29/2015 Scanned Document [address] [place] [phone] Provider, Generic Social History Tobacco Use [...] Description 06/09/2025 11:00 AM EDT Office Visit [facility] Breast Care [facility] Surgery [address] [place] [address] Fiona Faith APRN [address] [place] [address] documented as of this encounter Procedures Procedure Name Priority Date/Time Associated Diagnosis Comments LAB RESULT 10/29/2015 IMAGING BREAST/BX/MAMMO 09/29/2015 IMAGING BREAST/BX/MAMMO 09/29/2015 documented in this encounter Results * LAB RESULT (10/29/2015) Narrative 10/29/2015 Ordered by an unspecified provider. Generic Provider HX AMB PROCEDURES * IMAGING BREAST/BX/MAMMO (09/29/2015) Anatomical Region Laterality Modality Other Narrative 12/09/2016 8:33 AM EST Ordered by an unspecified provider. Generic Provider IMG LEGACY PROCEDURE S * IMAGING BREAST/BX/MAMMO (09/29/2015) Anatomical Region Laterality Modality Other Narrative 12/01/2016 1:04 AM EST Ordered by an unspecified provider. Generic Provider IMG LEGACY PROCEDURE S documented in this encounter Visit Diagnoses Not on filedocumented in this encounter Care Teams Equities Analyst Relationship Specialty Start Date End Date Provider, MD Maren PCP - General Internal Medicine 02/24/16 02/27/16 Stanley Calle MD [address] [place] [id number] PCP - General 02/28/16 03/25/19 Melissa French MD [address] [place] [id number] PCP - General 03/26/19 05/23/24 Pcp, No PCP - General General Medicine 05/24/24 06/03/24 Sola Le PA [address] [place] [id number] PCP - General General Medicine 06/04/24 Rosina Rudd MD [address] [place] [address] Hematology Oncology 04/12/16 11/20/16 documented as of this encounter
--- OUTSIDE RECORDS SUMMARY | 2024-12-09 16:57 | XMS_ITS | Encounter Summary ---
Author Organization [facility] Address [address] [place] [address] Care Team Providers Care Fire Extinguisher Repairer Name Role Phone Melissa French MD Primary Care Provider [phone] Pcp, No Primary Care Provider Sola Espinal Primary Care Provider [phone] Encounter Details Date Type Department Care Team (Late st Contact Info) Description 05/08/2023 Scanned Document [facility] Breast Care & Surgery [address] [phone] Fiona Faith APRN [address] [place] [address] Social History Tobacco Use Types Packs/Day Years [...] Description 06/09/2025 11:00 AM EDT Office Visit [facility] Breast Care & Surgery [address] [place] [address] Fiona Faith APRN [address] [place] [address] documented as of this encounter Visit Diagnoses Not on filedocumented in this encounter Care Teams Fire Extinguisher Repairer Relationship Specialty Start Date End Date Melissa French MD PCP - General 03/26/19 05/23/24 Pcp, No PCP - General General Medicine 05/24/24 06/03/24 Sola Le PA [address] [place] [id number] PCP - General General Medicine 06/04/24 documented as of this encounter
--- OUTSIDE RECORDS SUMMARY | 2024-12-09 16:57 | XMS_ITS | Encounter Summary ---
Author Organization [facility] Address [address] [place] [address] Care Team Providers Care Insurance Billing Clerk Name Role Phone Provider, Maren GALAN Primary Care Provider Un available Stanley Calle MD Primary Care Provider [phone] Rosina Rudd MD Unavailable [phone] Melissa French MD Primary Care Provider [phone] Pcp, No Primary Care Provider UnavailSola Sauer Primary Care Provider [phone] Encounter Details Date Type Department Care Team (Late st Contact Info) Description 08/27/2013 Scanned Document [address] [place] [phone] Provider, Generic Social History Tobacco Use [...] Description 06/09/2025 11:00 AM EDT Office Visit [facility] Breast Care & Surgery [address] [place] [address] Fiona Faith APRN [address] [place] [address] documented as of this encounter Visit Diagnoses Not on filedocumented in this encounter Care Teams Insurance Billing Clerk Relationship Specialty Start Date End Date Provider, MD Maren PCP - General Internal Medicine 02/24/16 02/27/16 Stanley Calle MD [address] [place] [id number] PCP - General 02/28/16 03/25/19 Melissa French MD [address] [place] [id number] PCP - General 03/26/19 05/23/24 Pcp, No PCP - General General Medicine 05/24/24 06/03/24 Sola Le PA [address] [place] [id number] PCP - General General Medicine 06/04/24 Rosina Rudd MD [address] [place] [address] Hematology Oncology 04/12/16 11/20/16 documented as of this encounter
--- OUTSIDE RECORDS SUMMARY | 2024-12-09 16:57 | XMS_ITS | Data Portability ---
Author Organization [place] - [facility], [facility] Address [id number] [place] [address] Care Team Providers Care Tube Teller Name Role Phone STANLEY VINES Primary Care Provider KM LAGUAN Primary Care Provider Assessment Encounter Date Assessment Date Assessment LastModified by Organization Details LastModified Time 04/13/2016 04/13/2016 GYNECOLOGIC EXAMINATION - S/P BSO? ? ? . Diet, exercise discussed.? ? ? Advise to use?sunscreen.? Vitamin? ? ?D supplementation discussed. 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 PERSONAL HX OF BREAST CANCER - S/P BILATERAL MASTECTOMY WITH RIGHT NIPPLE REMAINED,? ? ? EXPANDERS IN PLACE ejacunski Not available 04/13/2016 22:04:32 05/31/2017 05/31/2017 GYNECOLOGIC EXAMINATION - S/P BSO . Diet, exercise discussed. Advise to use sunscreen. 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 PERSONAL HX OF BREAST CANCER - S/P BILATERAL MASTECTOMY WITH RIGHT NIPPLE ? R EMAINED, s/p reconstruction. ? O steopenia - check BMD ejacunski Not available 06/01/2017 11:53:06 Plan of Treatment Reminders Order Date Submit Date Provider Last Modified By Organization Details Last Modified Time Details Appointments None recorded. Lab urinalysi s, dipstick 2015 016 [email or web address] In-Office Order, Internal Use Only DO Not Attach Compendium DO Not Attach Compendium, Do Not Delete/merge, [id number] 6 22:04:31 pap, IG + reflex HPV - NORMAL EXAM 2015 016 [facility], [address] [place], [address] 6 13:46:00 urinalysi s, dipstick 2016 017 ejacunski In-Office Order, Internal Use Only DO Not Attach Compendium DO Not Attach Compendium, Do Not Delete/merge, [id number] 7 11:53:07 pap, IG + HPV - normal exam 2016 017 [facility], [address] [place], [address] 7 14:32:47 pap, IG + reflex HPV - normal exam 2019 020 [facility], [address] [place] [address], [id number] 0 08:20:13 Referral None recorded. Procedures None recorded. Surgeries None recorded. Imaging bone density 2016 017 HERMELINDO Not available 7 08:29:11 Medication Orders None recorded. Patient TargetsNo targets recorded. Patient Instructions Encounter Date Encounter Id Patient Instructions Last Modified By Organization Details Last Modified Time 04/13/2016 [id number] GYNECOLOGIC EXAMINATION - S/P BSO? ? ? . Diet, exercise discussed.? ? ? Advise to use?sunscreen.? Vitamin? ? ?D supplementation discussed. 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 PERSONAL HX OF BREAST CANCER - S/P BILATERAL MASTECTOMY WITH RIGHT NIPPLE REMAINED,? ? ? EXPANDERS IN PLACE ejacunski Not available 04/13/2016 22:04:32 GYNECOLOGIC EXAMINATION - S/P BSO? ? ? . Diet, exercise discussed.? ? ? Advise to use?sunscreen.? Vitamin? ? ?D supplementation discussed. 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 PERSONAL HX OF BREAST CANCER - S/P BILATERAL MASTECTOMY WITH RIGHT NIPPLE REMAINED,? ? ? EXPANDERS IN PLACE ejacunski Not available 04/13/2016 22:04:32 05/31/2017 [id number] GYNECOLOGIC EXAMINATION - S/P BSO . Diet, exercise discussed. Advise to use sunscreen. 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 PERSONAL HX OF BREAST CANCER - S/P BILATERAL MASTECTOMY WITH RIGHT NIPPLE ? R EMAINED, s/p reconstruction. ejacunski Not available 06/01/2017 11:52:30 GYNECOLOGIC EXAMINATION - S/P BSO . Diet, exercise discussed. Advise to use sunscreen. 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 PERSONAL HX OF BREAST CANCER - S/P BILATERAL MASTECTOMY WITH RIGHT NIPPLE ? R EMAINED, s/p reconstruction. ejacunski Not available 06/01/2017 11:52:34 06/13/2018 [id number] tips to help you stay healthy ejacunski [...] reconstruction. 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 exam and to call us with any [...] DO Not Attach Compendium, Do Not Delete/merge, [id number] 05/31/2017 15:03:45 05/31/20 17 05/31/2017 urina lysis , dipst ick Glucose Negati ve Not Available In-Office Order Internal Use Only DO Not Attach Compendium DO Not Attach Compendium, Do Not Delete/merge, [id number] 05/31/2017 15:03:45 04/13/20 16 04/13/2016 urina lysis , dipst ick Protein Negati ve Not Available In-Office Order Internal Use Only DO Not Attach Compendium DO Not Attach Compendium, Do Not Delete/merge, [id number] 04/13/2016 11:19:33 04/13/20 16 04/13/2016 urina lysis , dipst ick Glucose Negati ve Not Available In-Office Order Internal Use Only DO Not Attach Compendium DO Not Attach Compendium, Do Not Delete/merge, [id number] 04/13/2016 11:19:33 04/13/20 16 04/14/2016 pap, IG + refle x HPV report GYNEC OLOGI KATHERIN CYTOL OGY REPOR T THINP REP PAP TEST WITH HPV REFLE X SPECI MEN ADEQU ACY: SATIS FACTO RY FOR EVALU ATION ; ENDOC ERVIC AL/TR ANSFO RMATI ON ZONE COMPO NENT PRESE NT. INTER PRETA TION: NEGAT ESTRELLA FOR INTRA EPITH ELIAL LESIO N OR TIESHA [place] . Elect farzana mello Sravani d Out By: SELENA TURK ON, [place]( CP) CLINI KATHERIN INFOR MATIO N: LMP: 2002 Z12.4 Speci men sourc e: CERVI X/END OCERV IX Abnor mal Pap Date: NI Addit ional Clini katherin Info/ Comme nts: 1 Autom ated presc reeni ng of all liqui d based speci mens is perfo rmed by the ThinP rep Imagi felix [place]. The Pap test is a scree radha test with an inher ent false negat estrella rate. [facility] , [address], [place] [address] CLIA [id number] CL-PO [id number]. Not Available [facility] [address] [place], [address] 04/14/2016 13:46:00 05/31/20 17 06/01/2017 pap, IG + HPV report GYNEC OLOGI KATHERIN CYTOL OGY REPOR T A. THINP REP PAP (IMAG ER) WITH HPV SCREE N AND REFLE X TO HPV 16,18 /45: SPECI MEN ADEQU ACY: SATIS FACTO RY FOR EVALU ATION . INTER PRETA TION: NEGAT ESTRELLA FOR INTRA EPITH ELIAL LESIO N OR MALIG SHU . 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 The Pap test is a scree radha test with an inher ent false negat estrella rate. [facility]i ng [facility] , [address] [place] [address] CLIA [id number] CL-PO [id number]. Not Available [facility] [address] [place], [address] 06/01/2017 14:32:47 05/31/20 17 06/01/2017 pap, IG [...] types from this sourc e. Not Available [facility] [address] [place], [address] 06/01/2017 14:32:47 08/19/20 20 08/19/2020 pap, IG + refle x HPV report [...] FOR INTRA EPITH ELIAL HEDY Anderson OR TIEHSA [place] . Atrop hy Elect farzana Lassiter d: Carolina Johnson, [place] (ASCP ) ----- ----- ----- ----- ----- ----- ----- ----- ----- ----- ----- ----- CLINI KATHERIN REESER JOCELYNE N: LMP: NG Speci men [facility] e: Cervi x, Endoc ervix CPT Codes : 35805 ICD Codes : Z12.4 Not Available [facility] [address] [place], [address] 08/24/2020 08:20:13 06/06/20 17 06/12/2012 bone densi [...] and men age 50 and older presen ting with the follow ing: -A hip or [...] 2016 08:22) Copy: STANLEY APPLE ON DO [facility] [address] [place] [address] [place] [address] [phone] [email or web address] [facility] [place] [address] [facility] [address], [place], [address], 09/19/2017 10:13:05 09/18/20 17 09/15/2017 bone densi ty No observ ation record ed. [email or web address] [facility] [address], [place], [address], 09/19/2017 10:13:05 10/18/20 21 10/15/2021 DEXA, axial skele ton EXAMIN ATION: BONE DENSIT OMETRY CLINIC AL INDICA TION: Osteop enia. COMPAR DEVIN: Previo us BD dated 2016 and baseli ne BD dated 2004. TECHNI QUE: Using a [employer] y Advanc e DXA system (softw are versio n: 14.10) manufa ctured by [employer], dual-e nergy x-ray absorp tiomet ry was [...] women and men age 50 and older presmannei dawkins with the follow ing: -A hip [...] patien t to us, Stanley olson MD [id number] (Elect arabella torres Signed - 2020 08:40) Copy: FITZ Brown [facility] [address] [place] [address] [phone] [email or web address] [facility] ([facility]) [address], [place], [address], 10/25/2021 11:31:28 Result Notes None recorded. Problems Name Problem SNOMED Code Status Onset Date Resolution Date Notes Provider Name and Address Organization Details Recorded Time Malignant tumor of breast 765825427 Active S/P BILATERAL MASTECTOMY , RIGHT NIPPLE REMAINED - DR.KING FITZ MADERA MD 175 [facility], [address] [place] [address], [phone], [facility] 6 22:06:46 Osteopenia 076530265 Active FITZ MADERA MD 175 [facility], [address] [place] [address], [phone], [facility] 6 22:06:46 Notes:HX OF BSO Problem Notes None recorded. Procedures Surgical History Date Name Laterality Status Provider Name and Address Organization Details Recorded Time 05/31/20 17 [id number] completed FITZ MADERA MD 175 [facility], [address] [place] [address], [address], [facility] 06/01/2017 11:49:45 05/31/20 17 [id number] completed FITZ MADERA MD [address], [place], [address], [facility] 06/01/2017 11:50:02 05/31/20 17 [id number]-[id number] completed FITZ MADERA MD [address], [place], [address], [facility] 06/01/2017 11:48:09 05/31/20 17 [id number]-[id number] completed FITZ MADERA MD [address], [place], [address], [facility] 06/01/2017 11:50:19 05/31/20 17 Date of Last Pap Smear completed Cecilia Hall [facility] 06/13/2018 15:25:48 05/26/20 17 Date of Last Colonoscopy completed FITZ MADERA MD [address], [place], [address], [facility] 05/31/2017 15:25:31 04/13/20 16 [id number] completed FITZ MADERA MD [address], [place], [address], [facility] 04/13/2016 22:01:26 04/13/20 16 X7Q-WSE completed FITZ MADERA MD [address], [place], [address], [facility] 04/13/2016 22:01:26 04/13/20 16 I4V-IVVVQ completed FITZ MADERA MD [address], [place], [address], [facility] 04/13/2016 22:01:26 04/13/20 16 [id number]-[id number] completed FITZ MADERA MD [address], [place], [address], [facility] 04/13/2016 22:01:26 04/13/20 16 [id number] completed FITZ MADERA MD [address], [place], [address], [place] - [facility] 04/13/2016 22:01:26 12/07/19 16 Mastectomy Bilateral completed Cecilia Hall [place] - [facility] 04/13/2016 11:23:31 12/03/19 16 Breast Surgery completed FITZ MADERA MD [address], [place], [address], [place] - [facility] 12/29/2015 20:53:17 09/28/20 15 Breast Biopsy completed FITZ MADERA MD [address], [place], [address], [place] - [facility] 12/04/2015 03:47:41 09/25/20 15 Date of Last Mammogram completed Cecilia Hall [place] - [facility] 04/13/2016 11:23:31 06/05/20 07 Laparoscopy completed FITZ MADERA MD [address], [place], [address], [place] - [facility] 04/13/2016 11:44:47 11/23/19 06 Myomectomy completed FITZ MADERA MD [address], [facility] [place], [address], [place] - [facility] 04/13/2016 11:44:47 Imaging Results Imaging Date Name Status LastModified by Organiz [facility] Details LastModified Time 06/12/2012 bone density completed mkulas Information not available 06/06/2017 09:41:50 09/15/2017 DEXA, axial skeleton completed [email or web address] [facility] [place] [address], [place], [address], 09/19/2017 10:13:05 09/15/2017 bone density completed [email or web address] [facility] [place] [address], [place], [address], 09/19/2017 10:13:05 10/15/2021 DEXA, axial skeleton completed [facility] ([facility]) [address] [facility] [address], [place], [address], 10/25/2021 11:31:28 Procedure Notes None recorded. Medical [...] Available Not Available Not Available Fluzone High-Dose [id number] (PF) 180 mcg/0.5 mL intramuscular syringe active Not Available Not Available Not Available Fluzone Quad (PF) 60 mcg (15 mcg x 4)/0.5 mL IM syringe active Not Available Not Available Not Available Vitals Date Recorded Body mass index (BMI) Body height Body weight Systolic blood pressure Diastolic blood pressure Provider Name and Address Organization Details Last Updated DateTime 04/13/2016 27.9 kg/m2 175.26 cm 11575.95 793 g 120 mm[Hg] 70 mm[Hg] Cecilia Hall [place] [facility] 11:19:33 Date Recorded Body height Provider Name an d Address Organization Details Last Updated DateTime 05/31/2017 175.26 cm Cecilia Hall [facility] 05/31/2017 15:01:21 Date Recorded Body mass index (BMI) Body weight Provider Name and Address Organization Details Last Updated DateTime 05/31/2017 27.5 kg/m2 31041.18 g Cecilia Hall [facility] 05/31/2017 15:01:25 Date Recorded Body height Provider Name an d Address Organization Details Last Updated DateTime 06/13/2018 175.26 cm Cecilia Hall [facility] 06/13/2018 15:41:10 Date Recorded Body mass index (BMI) Body weight Provider Name and Address Organization Details Last Updated DateTime 06/13/2018 27 kg/m2 33291.4 g Cecilia Hall [facility] 06/13/2018 15:41:13 Date Recorded Body weight Provider Name an d Address Organization Details Last Updated DateTime 08/19/2020 47388.96 g Katie Gaur[facility] 08/19/2020 15:08:29 Date Recorded Body mass index (BMI) Body height Provider Name and Address Organization Details Last Updated DateTime 08/19/2020 27.9 kg/m2 175.26 cm Katie Nolasco [facility] 08/19/2020 15:08:32 Date Recorded Systolic blood pressure Diastolic blood pressure Provider Name and Address Organization Details Last Updated DateTime 05/31/2017 122 mm[Hg] 86 mm[Hg] Cecilia Hall [facility] 05/31/2017 15:07:18 Date Recorded Systolic blood pressure Diastolic blood pressure Provider Name and Address Organization Details Last Updated DateTime 06/13/2018 140 mm[Hg] 90 mm[Hg] Cecilia Hall [facility] 06/13/2018 15:41:05 Date Recorded Systolic blood pressure Diastolic blood pressure Provider Name and Address Organization Details Last Updated DateTime 08/19/2020 142 mm[Hg] 82 mm[Hg] Katie Nolasco [facility] 08/19/2020 15:09:28 Social History Question Answer Notes LastModified by Organizat ion Details LastModified Time Tobacco Smoking Status Never Smoker Cecilia Hall null, [place] [facility] 04/13/2016 11:23:31 What Is Your Level Of [...] SNOMED-CT Code Diagnosis ICD10 Code Diagnosis Note [id number] FITZ MADERA MD [facility] [address] [place] [address] 04/13/2016 10:58:03 04/13/2016 11:53:17 Gynecologic examination 63593123 Z01.419 Screening for malignant neoplasm of cervix 492658321 Z12.4 [id number] FITZ MADERA MD [facility] [address] [place] [address] 05/31/2017 14:39:09 05/31/2017 15:41:53 Gynecologic examination 40440915 Z01.411 Screening for malignant neoplasm of cervix 504374882 Z12.4 Z11.51 Screening for osteoporosis 217575082 Z13.576 [id number] FITZ MADERA MD [facility] [address] [place] [address] 06/13/2018 15:09:21 06/13/2018 16:02:34 Gynecologic examination 43372089 Z01.411 GYNECOLOGI C EXAMINATIO N - S/P BSO . Diet, exercise discussed. Advise to use sunscreen. PERSONAL. Pap smear guidelines discussed. Pap not done.HISTO RY OF BREAST CANCER - S/P BILATERAL MASTECTOMY WITH RIGHT NIPPLE REMAINED, s/p reconstruc tion. [id number] FITZ MADERA MD [facility] [address] [place] [address] 08/19/2020 14:51:05 08/19/2020 15:38:39 Gynecologic examination 18128734 Z01.419 GYNECOLOGI C EXAMINATIO N - S/P BSO prophylact ic . Diet, exercise discussed. Advise to use sunscreen. Pap smear guidelines discussed. Pap not done.PERSO NAL HISTORY OF BREAST CANCER - S/P BILATERAL MASTECTOMY WITH RIGHT NIPPLE REMAINED, s/p reconstruc tion. Screening for malignant neoplasm of cervix 819174275 Z12.4 Depression screening 171 476065 Z13.31 Health Concerns Section Related Observation LastModified by Organization Detai ls LastModified Time None Recorded Concern Status LastModified by Organization Details LastModified Time None Recorded Advance Directives Directive None Recorded Payers Encounter Date Sequence Insurance Name Policy Number Policy Wright Covered Member ID Wright Member ID Guarantor Name 04/13/2016 1 [employer] - CHOICE (POS II) [id number] Antoine Martin [id number] Maira G Martin 05/31/2017 1 [employer] - CHOICE (POS II) [id number] Antoine Martin [id number] Maria G Martin 06/13/2018 1 [place] PPO) [id number] Maria G Martin [id number] Maria G Martin 08/19/2020 1 [facility] (MEDICARE REPLACEMENT PPO) [id number] Maria G Martin [id number] Maria G Martin Notes Date Note Type Note Provider Name and Address Organization Details Recorded Time 04/13/2016 text/html [facility] Annual GYNReported bypatient.History: s/p bilateral mastectomy 11/2015 Preventive measures:Encourage self breast examination; Encourage regular exercise; Up to date on colonoscopy screening; DEXA needs to schedule FITZ MADERA MD [address] [address], [facility] 04/13/2016 22:07:12 05/31/2017 text/html [facility] Annual GYNReported bypatient.History: no change in interval history Preventive measures:Encourage self breast examination; Encourage regular exercise FITZ MADERA MD [address] [address], [facility] 06/01/2017 11:53:40 06/13/2018 text/html [facility] Annual GYNReported bypatient.History: no change in interval history Preventive measures:Encourage self breast examination; Encourage regular exercise; Up to date on colonoscopy screening; DEXA up to date FITZ MADERA MD [address] [address], [facility] 06/13/2018 22:09:58 08/19/2020 text/html [facility] Annual GYNReported bypatient.History: no change in interval history Preventive measures:Encourage self breast examination; Encourage regular exercise; Up to date on colonoscopy screening; DEXA up to date 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 FITZ MADERA MD [address] [address], [facility] 08/22/2020 12:36:13 OBGyn Episode Ob Episode Information Episode Created Date Number of Fetuses Patient Bloodtype Patient rh Status Prepregnancy Weight lbs Domestic Partner Domestic Partner Phone Father Name Warranty Administrator Status 04/13/20 16 1 CLOSED Fetus Data First Name Last Name Admitted to NICU Weight (g) Sex Living Outcome Pediatric Complications Fetus ID Race Codes Race Delivery Type F [id number] Vaginal Delivery Bandar Calculation Initial Bandar Date [...] Domestic Partner Domestic Partner Phone Father Name Warranty Administrator Status 04/13/20 16 1 CLOSED Fetus Data First Name Last Name Admitted to NICU Weight (g) Sex Living Outcome Pediatric Complications Fetus ID Race Codes Race Delivery Type F [id number] Vaginal Delivery Bandar Calculation Initial Bandar Date [...]
== END 2024-12-09 12:54 | disposition home or self-care (01) ==
PROVIDERS: PCP Physician Assistant Medical; Visit Provider Physician Assistant Medical
DX: Z00.00 Encounter for general adult medical examination without abnormal findings (principal)

== ENCOUNTER → 2024-12-09 11:58 | Outpatient (BNVA) | payer BC, SELFPAY | PROVIDERS: PCP Physician Assistant Medical; Visit Provider Physician Assistant Medical | DX: Z00.00 Encounter for general adult medical examination without abnormal findings (principal); I10 Essential (primary) hypertension; E78.5 Hyperlipidemia, unspecified; Z85.3 Personal history of malignant neoplasm of breast; Z90.13 Acquired absence of bilateral breasts and nipples | CPT/HCPCS: 96127 ==

== ENCOUNTER 2025-06-12 11:44 | Outpatient (AMB) | payer BC, SELFPAY ==
--- NOTE | 2025-06-12 11:54 | MHC.PC.OV ---
Vital Signs 06/12/25 11:58 Height 5 ft 7.9 in Weight 189 lb 4 oz BMI 28.9 BP 116/78 Blood Pressure Location Rt brachial Position Sitting Respiration 14 Pulse 73 Pulse Source Pulse Oximeter Temp 98.1 F Temp Source Temporal Artery Scan Pulse Oximetry (%) 98 Oxygen Delivery Method Room Air Intake Visit Reasons: med review Intake Note: Maria G presents in the office today for a medication review. Allergies doxycycline Allergy (Unknown, Verified 06/12/25 11:56) Nausea Medication List - Last Reconciled 06/12/25 by STACI Ibarra amlodipine 2.5 mg PO DAILY atorvastatin 10 mg PO DAILY loperamide (Anti-Diarrheal (loperamide)) 2 mg PO Q6H PRN lorazepam (Ativan) 0.5 mg PO ONCE losartan 50 mg PO DAILY multivitamin 1 tab PO DAILY Tobacco use date assessed: 06/12/25 Fall risk assessment: No Falls in past year Last assessed Fall Risk: 06/12/25 Dental Screening Dental Screen Date: 06/12/25 Did you have a dental visit in the last 12 months?: Yes Did you have a dental problem in the last 6 months where you did not have access to dental care?: No Was dental information given to patient?: Patient has dentist HPI HPI Comments History of Present Illness Details This is a 69 year old female with a pmhx of HTN, HLD, tachycardia, multiple thyroid nodules, left breast cancer status post bilateral mastectomy and osteopenia presenting for for follow up. She has been doing well. She injured her right knee back in February when she picked up a heavy suitcase, but all of the symptoms resolved.. HTN, palpitations, mild AR, mild pulmonary HTN-Seen by Dr. Jason. Taking Losartan and Amlodipine. Patient previously on Carvedilol and reported increased BP and head pressure with it. Reported long history of PND and rhinitis on Lisinopril. Home BP readings are good. Blood pressure in the office is at goal. She had a CT scan of the chest without contrast on 07/10/2023 at [facility] which demonstrated a 0.4 cm solid nodule in the left lower lobe. She had minimal bronchiectasis in the middle right lobe and lingula and linear atelectasis or scarring in the lingula. She also had biapical scarring. There was also borderline evidence of pulmonary hypertension. She saw pulmonology, Dr. Christian. She also saw Cardiology. Pulmonology recommended follow up CT scan at 12 months which she did not have completed. Insurance initially denied this, but after multiple calls and attempts they have approved it. She is very anxious about doing this scan. She gets claustrophobic. OBGYN is Dr. Starks. She has mild uterine prolapse. She had an exam this urine was instructed to follow up in 2 years. Diagnosed with left breast cancer age 45. Recurrence 15 years later. S/p double mastectomy (precancerous cells were found in right breast post op). Followed [place] Dr. [place]. Colonoscopy at [facility] 05/26/17 was wnl and advised to return in 10 years. Mild uterine prolapse-sees Dr. Starks. She was instructed to follow up in 2 years. ROS: Constitutional: No unexplained weight loss, fever, chills, fatigue or night sweats. Respiratory: No shortness of breath, cough or sputum production. Cardiovascular: No chest pain, chest pressure or chest discomfort. No palpitations or pedal edema. Gastrointestinal: No anorexia, nausea, vomiting or diarrhea. No abdominal pain or blood in stool. Neurologic: No headache, dizziness, syncope Physical exam: Constitutional: Alert, in no distress. Neck: Supple, Full range of motion. No lymphadenopathy. No palpable thyroid masses. Respiratory: Clear to auscultation. Cardiovascular: S1 S2 regular. 1/IV systolic murmur only heard over the right sternal border Extremities: Warm and well perfused. No clubbing, cyanosis or edema. Psychiatric: Normal mood and affect [facility] Medical History (Updated 12/09/24 @ 15:26 by STACI Ibarra) Routine physical examination Lung nodule Presence of bilateral breast implant History of left breast cancer Tachycardia Pure hypercholesterolemia Sigmoid diverticulosis Osteopenia Ophthalmic migraine Multiple thyroid nodules Mild pulmonary hypertension Mild aortic regurgitation Hyperlipidemia History of diverticulosis Hemorrhoids, internal H/O herpes zoster Diarrhea Benign essential hypertension Acute sinusitis Surgical History (Reviewed 12/09/24 @ 12:09 by Constantine Bhatt [facility] Hx of breast surgery H/O bilateral oophorectomy Family History (Updated 06/12/25 @ 11:58 by Mirta Ramírez MA) Mother Breast cancer Sister Breast cancer Social History (Updated 06/12/25 @ 11:58 by Mirta Ramírez MA) Housing: House Alcohol intake: current Patient Tobacco Use Status: Never used Tobacco e-Cigarette/Vaping Use: Never Used Second Hand Smoke Exposure: No service: No Current occupational status: retired Cognitive needs: No Hearing needs: No Vision needs: Yes (glasses) Questionnaire Thrive Questionnaire Date Thrive assessed: 12/09/24 I am a: Patient What is your living situation today?: I have a steady place to live Within the past 12 months, did the food you bought not last and you didn't have the money to get more?: Often true Within the past 12 months, did you worry whether your food would run out before you got money to buy more?: Often true Do you have trouble paying for medicines?: No Do you have trouble getting transportation to medical appointments?: No Do you have trouble paying your heating and electricity bill?: No Do you have trouble taking care of your child, family member or friend?: No Do you have trouble with day-to-day activities such as bathing, preparing meals, shopping, managing finances, etc.?: No Are you currently unemployed and looking for a job?: No Are you interested in more education?: No Please select the resources that you would like help with: None Currently or been in a relationship where the following occur: No concerns reported THRIVE Score: 2 AUDIT C Alcohol Use Questionnaire (AUDIT-C) 2. How many drinks containing alcohol do you have on a typical day when you are drinking?: 1 or 2 3. How often do you have six or more drinks on one occasion?: Never Total Score: 0 BJ-7 AMB Questionnaire BJ-7 Date BJ - 7 assessed: 12/09/24 Source: Developed by Drs. Moris Carter, Melina Mitchell, Venkat Knapp and colleagues, with an educational maggy from [employer]. Physical exam (Primary Care) Vital Signs: Last Vital Signs Temp 98.1 F 06/12/25 11:58 Pulse 73 06/12/25 11:58 Resp 14 06/12/25 11:58 BP 116/78 06/12/25 11:58 Pulse Ox 98 06/12/25 11:58 Oxygen Delivery Method Room Air 06/12/25 11:58 BMI result Body Mass Index 28.9 Tobacco/Smoking Status: Tobacco use Status Tobacco use date assessed 06/12/25 06/12/25 11:58 Patient Tobacco Use Status Never used Tobacco 06/12/25 11:58 e-Cigarette/Vaping Use Never Used 06/12/25 11:58 Thrive Assessment: Date of Thrive Assessment Date Thrive assessed 12/09/24 06/12/25 11:55 Currently or been in a relationship where the following occur: No concerns reported Coding Level of Care Code Est Pt Level 4 (98753) Complex EM visit Add On G2211 Diagnoses Benign essential hypertension I10 Mild aortic regurgitation I35.1 Pure hypercholesterolemia E78.00 Lung nodule R91.1 History of left breast cancer Z85.3 Assessment & Plan Assessment & Plan (1) Benign essential hypertension: Code(s): I10 - Essential (primary) hypertension Category: Medical (2) Mild aortic regurgitation: Code(s): I35.1 - Nonrheumatic aortic (valve) insufficiency Category: Medical (3) Pure hypercholesterolemia: Code(s): E78.00 - Pure hypercholesterolemia, unspecified Category: Medical (4) Lung nodule: Code(s): R91.1 - Solitary pulmonary nodule Category: Medical (5) History of left breast cancer: Code(s): Z85.3 - Personal history of malignant neoplasm of breast Category: Medical Plan Hypertension is well-controlled. Continue lifestyle modifications. I congratulated her on weight loss. She is following a low-carbohydrate diet. CAT scan will be scheduled. Instructed the patient to call if she does not hear from central scheduling in 1-2 weeks. Given Ativan 0.5 mg to take 30-[address] scan. Patient advised not to drive with this medication or drink alcohol. Continue atorvastatin 10 mg daily for hyperlipidemia. Continue surveillance with Dr. Baptiste. Follow up in 6 months for a physical exam. She will have lab work done prior to the visit. Orders: Orders Comprehensive Met. Panel Today E78.00 - Pure hypercholesterolemia, unspecified, I10 - Essential (primary) hypertension Vitamin D 25-OH (D2 and D3) Today E78.00 - Pure hypercholesterolemia, unspecified, I10 - Essential (primary) hypertension, M85.80 - Other specified disorders of bone density and structure, unspecified site Lipid Panel Today E78.00 - Pure hypercholesterolemia, unspecified, E78.5 - Hyperlipidemia, unspecified, I10 - Essential (primary) hypertension Complete Blood Count no Diff Today E78.00 - Pure hypercholesterolemia, unspecified, I10 - Essential (primary) hypertension Medications: New lorazepam (Ativan) Administer 30-60 minutes prior to CAT scan. 0.5 mg PO ONCE 1 tab 0RF
[2025-06-12 11:58] VITALS: BP 116/78; PULSE 73; RESP 14; TEMP 36.7; O2SAT 98; BMI 28.9
--- OUTSIDE RECORDS SUMMARY | 2025-06-12 12:23 | XMS_ITS ---
Author Name [facility] Organization Unknown History of Medication Use Medication Directions Dispensed Refills Start Date End Date Stat Multiple Vitamins-Minerals (ONE A DAY WOMEN 50 PLUS PO) Take by mouth. 01/08/2024 active lisinopril (PRINIVIL,ZeSTRIL) 20 MG tablet Take 2 tablets (40 mg total) by mouth daily. 06/04/2024 aborted multivitamin Tab tablet Take 1 tablet by mouth daily. active triamcinolone (NASACORT AQ) 55 MCG/ACT Aerosol nasal spray into each nostril daily. active Problems Problem Status Onset Date Problem Type Date of Resolution Source BRCA gene mutation negative active [facility] active [facility] S/P mastectomy, bilateral active EncounterDiagnosisAct [facility] Family history of breast cancer active [facility]Diagn[facility]Act [facility] Malignant neoplasm of nipple of right breast in female, unspecified estrogen receptor status (HCC) active [facility]Diagn[facility]Act [facility] H/O breast reconstruction active 2016-03-02 ProblemAct [facility] Encounters Encounter Type Encounter Reason Primary Diagnosis Location Date Ambulatory Malignant neoplasm of nipple and areola, right female breast Malignant neoplasm of nipple and areola, right female breast [facility] 06/04/2024 Ambulatory Malignant neopla sm of nipple and areola, right female breast [facility] 05/08/2023 Ambulatory Malignant neopla sm of nipple and areola, right female breast [facility] 05/02/2022 Care Team Organization Name Specialty Phone Email Start Date End Da te [facility] 06/04/2024 [facility] 04/15/2023 [facility] 05/02/2022 [facility] 05/02/2022 023 [facility]
--- OUTSIDE RECORDS SUMMARY | 2025-06-12 12:23 | XMS_ITS | Encounter Summary ---
Author Organization [facility] Address [address] [place] [address] Care Team Providers Care Gyro Compass Tester Name Role Phone Provider, Maren GALAN Primary Care Provider Un available Stanley Calle MD Primary Care Provider [phone] Rosina Rudd MD Unavailable [phone] Melissa French MD Primary Care Provider [phone] Pcp, No Primary Care Provider UnavailSola Sauer Primary Care Provider [phone] Encounter Details Date Type Department Care Team (Late st Contact Info) Description 08/27/2013 Scanned Document [address] [place] [phone] Provider, Generic Social History Tobacco Use Types Packs/Day Years Used Date Smoking Tobacco: Never Assessed Comments Unknown Sex and Gender Information Value Date Recorded Sex Assigned at Not on file Legal Sex Female 12:51 PM EDT Gender Identity Not on file Sexual Orientation Not on file documented as of this encounter Plan of Treatment Upcoming Encounters Date Type Department Care Team (Late st Contact Info) Description 08/19/2025 3:00 PM EDT Office Visit [facility] Breast [facility] & Surgery [address] [place] [phone] Lori Faith, IT ANALYST [address] [facility] [address] [place] [address] documented as of this encounter Visit Diagnoses Not on filedocumented in this encounter Care Teams Gyro Compass Tester Relationship Specialty Start Date End Date Provider, MD Maren PCP - General Internal Medicine 02/24/16 02/27/16 Stanley Calle MD [address] [place] [id number] PCP - General 02/28/16 03/25/19 Melissa French MD [address] [place] [address] PCP - General 03/26/19 05/23/24 Pcp, Alysa PCP - General General Medicine 05/24/24 06/03/24 Sola Le PA [address] [place] [address] PCP - General General Medicine 06/04/24 Rosina Rudd MD [address] [place] [address] Hematology Oncology 04/12/16 11/20/16 documented as of this encounter
--- OUTSIDE RECORDS SUMMARY | 2025-06-12 12:23 | XMS_ITS | Patient Health Record ---
Author Organization [employer] [facility] Address [address] [place] [address] Care Team Providers Care Stratigrapher Name Role Phone SETH WYATT PA-C Primary Care Provider Michelle Quiñonez Unavailable [phone] Allergies Allergen (clinical drug ingredient) Drug/Non Drug Allergy documented on EMR Reaction Allergy Type Onset Date Status doxycycline Doxycycline Nausea Drug Allergy Act renee Results Component Value Reference Range Notes [id number] IGP No Culture 30 Plus Reviewed date:03/19/2025 01:37:09 AM Interpretation: Performing Lab:[facility] [place], [address], [address], [place], Phone - [phone], Director - [facility] Notes/Report: No. of containers..01 ThinPrep Vial Other..............Post Menopausal Dates / Results....2019 Clinical Information:vag,cerv [id number] DIAGNOSIS: NEGATIVE FOR IN TRAEPITHELIAL LESION OR MALIGNANCY. Specimen adequacy: Satisfactory for evaluation. Endocervical and/or squamous metaplastic cells (endocervical component) are present. Clinician provided ICD10: Z0 1.419 Performed by: Reina slater, Engine Lathe Operator (ASCP) . . Note: The Pap smear is a screening test designed to aid in the detection of premalignant and malignant conditions of the uterine cervix. It is not a diagnostic procedure and should not be used as the sole means of detecting cervical cancer. Both false-positive and false-negative reports do occur. . Test Methodology: This liquid based ThinPrep(R) pap test was screened with the use of an image guided system. HPV Aptima Negative Negative This nucleic acid amplification test detects fourteen high-risk HPV types (16,18,31,33,35,39,45,51,52,56,5 8,59,66,68) without differentiation. HPV Genotype Reflex Criteria not met, HPV Genotype not performed. PDF Report Reviewed date:03/19/2025 01:36:41 AM Interpretation: Performing Lab:[facility] [place], [address], [address], [place], Phone - [phone], Director - [facility] Notes/Report: Clinical Information:vag,cerv [id number] Dates / Results....2019 Other..............Post Menopausal No. of containers..01 ThinPrep Vial Reason For Referral No Information Medications Medication SIG (Take, Route, Frequency, Duration) Notes Start Date End Date Status Multi For Her 50+ - as directed Orally Active Atorvastatin Calcium 10 MG 1 tablet Oral ly Once a day Active amLODIPine Besylate 2.5 MG 1 tablet Oral ly Once a day Active Losartan Potassium 50 MG 1 tablet Orally Once a day Active Social History Tobacco Use: Social History Observation Description Date Details (start date - stop date) Never Smoker NA - NA Sexual History Question Answer Notes Had sex in the past 12 months (vaginal, oral, or anal)? No Have you ever had a Sexually transmitted disease ? No AUDIT-C (Standard) Question Answer Notes Did you have a drink containing alcohol in the p ast year? No Points 0 Interpretation Negative Tobacco Control (Standard) Question Answer Notes Tobacco use: Nonsmoker Problems Problem Type SNOMED Code ICD Code Onset Dates Problem Status W/U Status Risk Notes Problem Postmenopausal atrophic vaginitis (72474217) Postmenopausal atrophic vaginitis (N95.2) Active confirmed Problem Essential hypertension (54291081) Essential (primary) hypertension (I10) Active confirmed Problem Malignant neoplasm of female breast (869315016) Malignant neoplasm of unspecified site of left female breast (C50.912) Active confirmed Problem Hyperlipidemia (44260578) Hyperlipidemia, unspecified (E78.5) Active confirmed Problem Personal history of primary malignant neoplasm of breast (314435759) Personal history of malignant neoplasm of breast (Z85.3) Active confirmed Problem Pulmonary hypertension (03803894) Pulmonary hypertension, unspecified (I27.20) Active confirmed Vital Signs Temperature 98.2 degrees Fahrenheit 03/13/2025 Blood pressure diastolic 88 mm Hg 03/13/2025 Height 68 in 03/13/2025 Blood pressure systolic 166 mm Hg 03/13/2025 Weight 190 lbs 03/13/2025 BMI 28.89 kg/m2 03/13/2025 Encounters Encounter Location Date Provider Diagnosis Total [address] [place] [address] 03/13/2025 Michelle Starks Personal history of malignant neoplasm of breast Z85.3 ; Encounter for other screening for malignant neoplasm of breast Z12.39 ; Other specified disorders of bone density and structure, multiple sites M85.89 ; Encounter for gynecological examination (general) (routine) without abnormal findings Z01.419 and Postmenopausal atrophic vaginitis N95.2 Assessments Encounter Date Diagnosis (ICD Code) Assessment Notes Treatment Notes Treatment Clinical Notes Section Notes 03/13/2025 Personal history of malignant neoplasm of breast (ICD-10 - Z85.3) DISCUSSED PREVIOUS BILATERAL MASTECTOMIES. NO MORE MAMMOGRAMS. 03/13/2025 Encounter for other screening for malignant neoplasm of breast (ICD-10 - Z12.39) 03/13/2025 Encounter for gynecological examination (general) (routine) without abnormal findings (ICD-10 - Z01.419) PAP TEST WITH HPV TYPING WAS OBTAINED (LAST ONE IF NEGATIVE). 03/13/2025 Other specified disorders of bone density and structure, multiple sites (ICD-10 - M85.89) BONE DENSITY WAS ORDERED FOR 2025. GET BMD RESULTS DONE IN AUG 2024. ADEQUATE CALCIUM AND VIT D. WEIGHT BEARING EXERCISES. 03/13/2025 Postmenopausal atrophic vaginitis (ICD-10 - N95.2) DISCUSSED FINDINGS, DX AND TX OPTIONS. LUBRICANTS LIKE ALOE CADABRA WERE RECOMMENDED. Plan Of Treatment Pending Test Test Name Order Date MAMMOGRAM, SCREENING 03/13/2025 BONE DENSITY 03/13/2025 Insurance Providers Payer Name Payer Address Payer Phone Subscriber Number Group Number Insured Name Patient Relationship to Insured Coverage Start Date Coverage End Date [employer]BS MEDICARE PPO [address] [place] [address] [phone] [id number] RUBY VERONICA Self - patient is the insured Medical (General) History Medical History History ICD Code Other specified disorders of bone densit y and structure, multiple sites M85.89 Pulmonary hypertension, unspecified I27. 20 Hyperlipidemia, unspecified E78.5 Unspecified hemorrhoids K64.9 Essential (primary) hypertension I10 Malignant neoplasm of unspecified site o f left female breast C50.912 Surgical History Surgery Date(Month/Year) Laparoscopic Bilateral Oopherectomy Left Breast Lumpectomy W/Radiation for 5 Weeks Double Mastectomy Colonoscopy Hospitalization History Reason Date(Month/Year) See Surgical Hx 2 Vaginal Deliveries
== END 2025-06-12 12:32 | disposition home or self-care (01) ==
LOC: HO.HMCFM 11:45
PROVIDERS: PCP Physician Assistant Medical; Visit Provider Physician Assistant Medical
DX: I10 Essential (primary) hypertension (principal); I35.1 Nonrheumatic aortic (valve) insufficiency; E78.00 Pure hypercholesterolemia, unspecified; R91.1 Solitary pulmonary nodule; Z85.3 Personal history of malignant neoplasm of breast

== ENCOUNTER 2025-06-21 08:49 | Outpatient (REF) | payer BC, SELFPAY ==
--- NOTE | ~2025-06-21 | CT_ITS ---
CLINICAL HISTORY: R91.1 - Solitary pulmonary nodule --- Additional Notes or Special Instructions: surveillance of lung nodule in patient with increased risk due to history CT chest without contrast Comparison: None provided Findings: The heart size is normal. The visualized thyroid and mediastinum are unremarkable. There is right middle and lingular segment left upper lobe subsegmental atelectasis versus scarring. There are no solid or semi solid pulmonary lesions. The visualized upper abdomen is unremarkable. The bones are intact. IMPRESSION: 1. Left upper and right middle lobe scar versus subsegmental atelectasis. This document has been electronically signed by: Gato Tmaez MD on 06/23/2025 08:59:02
--- OUTSIDE RECORDS SUMMARY | 2025-06-21 08:52 | XMS_ITS | Encounter Summary ---
Author Organization [facility] Address [address] [place] [address] Care Team Providers Care Scrummaster Name Role Phone Provider, Maren GALAN Primary Care Provider Un available Stanley Calle MD Primary Care Provider [phone] Rosina Rudd MD Unavailable [phone] Melissa French MD Primary Care Provider [phone] Pcp, No Primary Care Provider UnavailSola Sauer Primary Care Provider [phone] Encounter Details Date Type Department Care Team (Late st Contact Info) Description 08/27/2013 Scanned Document [address] [place] [phone] Provider, Generic Social History Tobacco Use [...] Description 08/19/2025 3:00 PM EDT Office Visit [facility] [address] [place] [phone] Lori Faith, RESPIRATORY TECHNICIAN [address] [facility] [address] [place] [address] documented as of this encounter Visit Diagnoses Not on filedocumented in this encounter Care Teams Scrummaster Relationship Specialty Start Date End Date Provider, MD Maren PCP - General Internal Medicine 02/24/16 02/27/16 Stanley Calle MD [address] [place] [address] PCP - General 02/28/16 03/25/19 Melissa French MD [address] [place] [address] PCP - General 03/26/19 05/23/24 Pcp, Alysa PCP - General General Medicine 05/24/24 06/03/24 Sola Le PA [address] [place] [phone] PCP - General General Medicine 06/04/24 Rosina Rudd MD [address] [place] [address] Hematology Oncology 04/12/16 11/20/16 documented as of this encounter
--- OUTSIDE RECORDS SUMMARY | 2025-06-21 08:52 | XMS_ITS | Patient Health Record ---
Author Organization [employer] [facility] Address [address] [place] [address] Care Team Providers Care Padder Cushion Name Role Phone SETH WYATT PA-C Primary Care Provider Michelle Quiñonez [phone] Allergies Allergen (clinical drug ingredient) Drug/Non Drug Allergy documented on EMR Reaction Allergy Type Onset Date Status doxycycline Doxycycline Nausea Drug Allergy Act renee Results Component Value Reference Range Notes PDF Report Reviewed date:03/19/2025 01:36:41 AM Interpretation: Performing Lab:[facility], [address], [address], [employer] Phone - [phone], Director - [facility] Notes/Report: Clinical Information:vagabel [id number] Dates / Results....2018 Other..............Post Menopausal No. of containers..01 ThinPrep Vial [id number] IGP No Culture 30 Plus Reviewed date:03/19/2025 01:37:09 AM Interpretation: Performing Lab:[facility], [address], [address], [employer] Phone - [phone], Director - [facility] Notes/Report: Clinical Information:abel owusu [id number] Dates / Results....2018 Other..............Post Menopausal No. of containers..01 ThinPrep Vial DIAGNOSIS: NEGATIVE FOR IN TRAEPITHELIAL LESION OR MALIGNANCY. Specimen adequacy: Satisfactory for evaluation. Endocervical and/or squamous metaplastic cells (endocervical component) are present. Clinician provided ICD10: Z0 1.419 Performed by: Reina slater, Supervisor [employer] (ASCP) . . Note: The Pap smear [...] Criteria not met, HPV Genotype not performed. Reason For Referral No Information Medications Medication [...] Status Risk Notes Problem Postmenopausal atrophic vaginitis (40360624) Postmenopausal atrophic vaginitis (N95.2) Active confirmed Problem Essential hypertension (19414393) Essential (primary) hypertension (I10) Active confirmed Problem Malignant neoplasm of unspecified site of left female breast (C50.912) Active confirmed Problem Hyperlipidemia (35226107) Hyperlipidemia, unspecified (E78.5) Active confirmed Problem Personal history of primary malignant neoplasm of breast (339624412) Personal history of malignant neoplasm of breast (Z85.3) Active confirmed Problem Pulmonary hypertension (00791241) Pulmonary hypertension, unspecified (I27.20) Active confirmed Vital Signs Temperature 98.2 degrees Fahrenheit 03/13/2025 Blood pressure diastolic 88 mm Hg 03/13/2025 Height 68 in 03/13/2025 Blood pressure systolic 166 mm Hg 03/13/2025 Weight 190 lbs 03/13/2025 BMI 28.89 kg/m2 03/13/2025 Encounters Encounter Location Date Provider Diagnosis Total [address] [place] [address] 03/13/2025 Michelle Starks Personal history of malignant [...] End Date [employer] MED[employer]ARE PPO [address] [place] [address] [id number] RUBY VERONICA Self - patient is the [...]
== END 2025-06-21 08:50 | disposition home or self-care (01) ==
LOC: HO.CT 08:49
PROVIDERS: PCP Physician Assistant Medical; Visit Provider Physician Assistant Medical
DX: R91.1 Solitary pulmonary nodule (principal); Z85.3 Personal history of malignant neoplasm of breast
CPT/HCPCS: 71250

== ENCOUNTER → 2025-06-21 08:51 | Outpatient (BNV) | payer BC, SELFPAY | PROVIDERS: PCP Physician Assistant Medical; Visit Provider Specialist | DX: R91.1 Solitary pulmonary nodule (principal) | CPT/HCPCS: 71250 ==

== ENCOUNTER 2025-10-27 08:18 | Outpatient (REF) | payer BC, SELFPAY ==
[2025-10-27 11:20] LABS: Hematocrit 43.9 % (37.0-47.0); Hemoglobin 14.1 g/dl (12.0-16.0); Mean Corpuscular HGB Conc 32.1 g/dl (31.0-35.0); Mean Corpuscular Hemoglobin 28.7 pg (27.0-33.0); Mean Corpuscular Volume 89.2 fL (80.0-98.0); NRBC Abs Auto 0.000 X10*3/uL (0.0-0.012); NRBC Pct Auto 0.0 /100WBC (0.0-0.2); Platelet Count 316 X10*3/uL (160-400); Red Blood Count 4.92 X10*6/uL (4.20-5.50); White Blood Count 5.5 X10*3/uL (4.8-10.8)
[2025-10-27 11:40] LABS: Alanine Aminotransferase 21 U/L (0-31); Albumin Level 4.4 g/dL (3.5-5.0); Alkaline Phosphatase 77 U/L (39-117); Anion Gap 8 (12-20); Aspartate Amino Transferase 27 U/L (5-31); Blood Urea Nitrogen 14 mg/dL (9-16); Calcium 9.1 mg/dL (8.4-10.2); Carbon Dioxide 27 mmol/L (22-29); Chloride 107 mmol/L (96-108); Cholesterol 165 mg/dL (<200); Estimated Glomerular Filt Rate > 60; HDL Cholesterol 70 mg/dL (>40); Potassium 4.2 mmol/L (3.3-5.1); Sodium 138 mmol/L (135-145); Total Protein 7.4 g/dL (6.5-8.0); Triglycerides 59 mg/dL (<150)
== END 2025-10-27 08:19 | disposition home or self-care (01) ==
LOC: HO.WFDLDS 08:18
PROVIDERS: Visit Provider Physician Assistant Medical
DX: I10 Essential (primary) hypertension (principal); M85.80 Other specified disorders of bone density and structure, unspecified site; E78.00 Pure hypercholesterolemia, unspecified; E78.5 Hyperlipidemia, unspecified
CPT/HCPCS: 36415; 80053; 80061; 82306; 85027